=== PATIENT | female | born 1985 | race Caucasian/White ===

== ENCOUNTER 2019-10-27 18:14 | Emergency (ER) | payer SELFPAY ==
--- NOTE | 2019-10-27 19:10 | RAD REPORT ---
EXAM DESCRIPTION: Mally Single View10/27/2019 7:04 pm CLINICAL HISTORY: Chest pain COMPARISON: 2010 FINDINGS: The lungs appear clear of acute infiltrate. The heart is normal size IMPRESSION: No acute abnormalities displayed
--- NOTE | 2019-10-27 19:16 | RAD REPORT ---
EXAM DESCRIPTION: US - Abdomen Exam Limited - 10/27/2019 7:06 pm CLINICAL HISTORY: Abdominal pain. COMPARISON: 2007 FINDINGS: The gallbladder wall is not thickened. A gallstone is not seen. The biliary tree is normal caliber. IMPRESSION: Unremarkable gallbladder ultrasound.
[2019-10-27 19:56] LABS: Urine Blood NEGATIVE (NEG); Urine Glucose NEGATIVE (NEG); Urine Protein NEGATIVE (NEG)
[2019-10-27 20:05] LABS: Absolute Lymphocytes (CBC) 3.1 K/uL (0.7-4.9); Basophils % 0.5 % (0-1.3); Hematocrit 38.8 % (36.0-45.0); Lymphocytes % 45.4 % (15.3-44.8); MPV 8.8 fL (7.6-11.3); RBC Red Blood Cell Count 4.07 M/uL (3.86-4.86)
[2019-10-27 20:11] LABS: Protime INR 0.94
[2019-10-27] MEDS ORDERED: NA CHLORIDE 0.9% 1,000 ML ONE (20:12)
[2019-10-27] MEDS ORDERED: ACETAMINOPHEN 500 MG TAB ONE (20:13)
[2019-10-27 20:27] LABS: ALT/SGPT 31 U/L (12-78); AST/SGOT 21 U/L (15-37); Albumin 3.5 g/dL (3.4-5.0); Alkaline Phosphatase 82 U/L (45-117); BUN Blood Urea Nitrogen 13 mg/dL (7-18); Bicarbonate 30 mmol/L (21-32); Bilirubin Direct 0.1 mg/dL (0-0.2); Bilirubin Total 0.2 mg/dL (0.2-1.0); Glucose Level 94 mg/dL (74-106); Magnesium 2.2 mg/dL (1.8-2.4); NT PRO-BNP 19 pg/mL (<125); Potassium 3.7 mmol/L (3.5-5.1); Protein, Total 7.2 g/dL (6.4-8.2); Sodium Level 140 mmol/L (136-145); Troponin (Emerg Dept Use Only) < 0.02 ng/mL (0.0-0.045)
[2019-10-27] MEDS ORDERED: KETOROLAC 30 MG/ML INJ ONE (21:05)
[2019-10-27] MEDS ORDERED: METHYLPREDNISOLONE 125 MG INJ ONE (21:38)
[2019-10-27] MEDS ORDERED: DIPHENHYDRAMINE 50 MG/ML VIAL ONE (21:38)
[2019-10-27] MEDS ORDERED: FAMOTIDINE 20 MG/2 ML VIAL IV ONE (21:39)
--- NOTE | 2019-10-27 23:42 | EDPHYS ---
Physician Documentation [facility] Name: Nora Dsouza Age: 34 yrs Sex: Female : 1985 Arrival Date: 10/27/2019 Time: 18:21 Bed 5 Private MD: ED Physician Malcolm Moore HPI: 10/27 18:45 This 34 yrs old Female presents to ER via Ambulatory with complaints of Chest cp Pain. 18:45 The patient or guardian reports chest pain that is located primarily in the left lower cp chest below breast. The pain radiates to the left arm, the left shoulder, left back. Associated signs and symptoms: Pertinent positives: lower extremity pain, shortness of breath, Pertinent negatives: abdominal pain, diaphoresis, lower extremity swelling, palpitations, recent travel, syncope. The chest pain is described as sharp. Duration: The patient or guardian reports a single episode, that is still ongoing. Modifying factors: the symptoms are aggravated by activity, deep breath. Severity of pain: in the emergency department the pain is unchanged despite home interventions. 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 - Coronavirus screen:: The patient has NOT traveled to [place] in the past 14 days. - Social history:: Smoking status: Patient/guardian denies using tobacco. - Ebola Screening: : Patient denies travel to an Ebola-affected area in the 21 days before illness onset. ROS: 18:50 Constitutional: Negative for body aches, chills, fever, poor PO intake. cp 18:50 Eyes: Negative for injury, pain, redness, and discharge. cp 18:50 ENT: Negative for drainage from ear(s), ear pain, sore throat, difficulty swallowing, difficulty handling secretions. 18:50 Neck: Negative for pain with movement, pain at rest, stiffness. 18:50 Cardiovascular: Positive for chest pain, Negative for edema, palpitations. 18:50 Respiratory: Negative for cough, shortness of breath, wheezing. 18:50 Abdomen/GI: Negative for abdominal pain, vomiting, diarrhea, constipation. 18:50 Back: Positive for radiated pain. 18:50 : Negative for urinary symptoms. 18:50 Skin: Negative for rash. 18:50 Neuro: Negative for altered mental status, headache, syncope, weakness. 18:50 All other systems are negative. Exam: 18:55 Constitutional: The patient appears in no acute distress, alert, awake, cp non-diaphoretic, non-toxic, well developed, well nourished. 18:55 Head/Face: Normocephalic, atraumatic. cp 18:55 Eyes: Periorbital structures: appear normal, Conjunctiva: normal, no exudate, no injection, Sclera: no appreciated abnormality, Lids and lashes: appear normal, bilaterally. 18:55 ENT: External ear(s): are unremarkable, Nose: is normal, Mouth: Lips: moist, Oral mucosa: pink and intact, moist, Posterior pharynx: is normal, airway is patent, no erythema, no exudate. 18:55 Neck: ROM/movement: is normal, is supple, without pain, no range of motions limitations, no nuchal rigidity. 18:55 Chest/axilla: Inspection: normal, Palpation: crepitus, is not appreciated. 18:55 Cardiovascular: Rate: normal, Rhythm: regular, Heart sounds: murmur, not appreciated, rub, not appreciated, gallop, not appreciated, Edema: is not appreciated. 18:55 Respiratory: the patient does not display signs of respiratory distress, Respirations: normal, no use of accessory muscles, no retractions, labored breathing, is not present, Breath sounds: are clear throughout, no decreased breath sounds, no stridor, no wheezing. 18:55 Abdomen/GI: Inspection: abdomen appears normal, Bowel sounds: active, all quadrants, Palpation: abdomen is soft and non-tender, in all quadrants, voluntary guarding, is not appreciated, involuntary guarding, is not appreciated. 18:55 Back: pain, that is mild, ROM is normal. 18:55 Skin: no rash present. 18:55 Neuro: Orientation: to person, place \T\ time. Mentation: is normal, Cerebellar function: is grossly normal, Motor: moves all fours, strength is normal, Sensation: is normal. 19:45 ECG was reviewed by the Attending Physician. cp 23:35 ECG was reviewed by the Attending Physician. cp Vital Signs: 18:24 BP 115 / 84; Pulse 73; Resp 18; Temp 97.1; Pulse Ox 100% on R/A; Weight 84.82 kg (R); aj1 Height 5 ft. 2 in. (157.48 cm) (R); Pain 3/10; 20:15 BP 107 / 73 LA; Pulse 73; lp1 20:15 BP 110 / 82 RA; Pulse 71; lp1 21:15 BP 115 / 81; Pulse 72; Resp 16; Pulse Ox 98% on R/A; lp1 22:05 BP 113 / 80; Pulse 71; Resp 18; Pulse Ox 99% on R/A; lp1 23:08 BP 115 / 77; Pulse 70; Resp 17; Temp 97.5(O); Pulse Ox 100% ; rv 18:24 Body Mass Index 34.20 (84.82 kg, 157.48 cm) aj1 MDM: 18:36 Patient medically screened. cp 19:00 Differential diagnosis: abnormal EKG, acute myocardial infarction, acute pericarditis, cp chest wall pain, cholecystitis, Cholelithiasis pericarditis, pleurisy, pneumonia, pneumothorax, pulmonary embolus, thoracic aortic disection. 22:29 ED course: verbal report from [employer] tech that DVT studies negative. cp 23:40 Data reviewed: vital signs, nurses notes, lab test result(s), EKG, radiologic studies, cp CT scan, plain films, ultrasound, I have discussed the patient's presentation/case with the attending Emergency Department Physician; and as a result, I will discharge patient. 23:40 Test interpretation: by ED physician or midlevel provider: ECG, plain radiologic cp studies, chest xray negative for infiltrates. Counseling: I had a detailed discussion with the patient and/or guardian regarding: the historical points, exam findings, and any diagnostic results supporting the discharge/admit diagnosis, lab results, radiology results, the need for outpatient follow up, a screw remover, to return to the emergency department if symptoms worsen or persist or if there are any questions or concerns that arise at home. Response to treatment: the patient's symptoms have markedly improved after treatment, and as a result, I will discharge patient. Special discussion: Based on the patient's history, exam, and Dx evaluation, there is no indication for emergent intervention or inpatient Tx. It is understood by the patient/guardian that if the Sx's persist or worsen they need to return immediately for re-evaluation. 10/27 18:39 Order name: Basic Metabolic Panel 10/27 18:39 Order name: CBC with Diff 10/27 18:39 Order name: LFT's cp 10/27 18:39 Order name: Magnesium cp 10/27 18:39 Order name: NT PRO-BNP cp 10/27 18:39 Order name: PT-INR cp 10/27 18:39 Order name: Troponin (emerg Dept Use Only) cp 10/27 18:39 Order name: D-Dimer 10/27 19:49 Order name: Urine Dipstick--Ancillary (enter results) 2 10/27 19:49 Order name: Urine --Ancillary (enter results) [facility] 10/27 19:57 Order name: Urine --Ancillary; Complete Time: 20:17 EDMS 10/27 19:57 Order name: Urine Dipstick-Ancillary; Complete Time: 20:17 EDMS 10/27 20:07 Order name: CBC with Automated Diff; Complete Time: 20:17 EDMS 10/27 20:37 Interpretation: Normal except: LYM% 45.4. 10/27 20:17 Order name: Protime (+INR); Complete Time: 20:37 EDMS 10/27 18:39 Order name: XRAY Chest (1 view) 10/27 18:40 Order name: US Abdomen Limited: RUQ 10/27 19:38 Order name: RAD; Complete Time: 20:17 EDMS 10/27 19:38 Order name: US; Complete Time: 20:17 EDMS 10/27 20:17 Order name: D-Dimer; Complete Time: 20:37 EDMS 10/27 20:37 Interpretation: Abnormal: D-DIMER 529. cp 10/27 20:28 Order name: Basic Metabolic Panel; Complete Time: 20:37 EDMS 10/27 20:28 Order name: Liver (Hepatic) Function; Complete Time: 20:37 EDMS 10/27 20:37 Interpretation: Normal except: GLOB 3.7; A/G 0.9. cp 10/27 20:28 Order name: Troponin (Emerg Dept Use Only); Complete Time: 20:37 EDMS 10/27 20:28 Order name: NT PRO-BNP; Complete Time: 20:37 EDMS 10/27 20:28 Order name: Magnesium; Complete Time: 20:37 EDMS 10/27 20:39 Order name: US Extremity Venous W Compression Anmol cp 10/27 21:27 Order name: CT Chest For PE Angio cp 10/27 23:24 Order name: Troponin I cp 10/27 18:25 Order name: EKG - Nurse/Tech; Complete Time: 19:44 aj1 10/27 18:39 Order name: EKG; Complete Time: 18:41 cp 10/27 18:39 Order name: Cardiac monitoring; Complete Time: 20:01 cp 10/27 18:39 Order name: IV Saline Lock; Complete Time: 20:01 cp 10/27 18:39 Order name: Labs collected and sent; Complete Time: 20:01 cp 10/27 18:39 Order name: O2 Per Protocol; Complete Time: 20:01 cp 10/27 18:39 Order name: O2 Sat Monitoring; Complete Time: 20:01 cp 10/27 18:39 Order name: Blood Pressure Recheck: bilateral upper extremity; Complete Time: 20:15 cp 10/27 18:39 Order name: Urine Dipstick-Ancillary (obtain specimen); Complete Time: 19:44 cp 10/27 18:39 Order name: Urine Test (obtain specimen); Complete Time: 19:44 cp 10/27 23:24 Order name: EKG; Complete Time: 23:24 cp 10/27 23:24 Order name: EKG - Nurse/Tech; Complete Time: 23:31 cp EC:45 Rate is 67 beats/min. Rhythm is regular. NM interval is prolonged at 204 msec. QRS cp interval is normal. QT interval is normal. Interpreted by me. Reviewed by me. 23:35 Rate is 76 beats/min. Rhythm is regular. NM interval is prolonged at 202 msec. QRS cp interval is normal. QT interval is normal. Interpreted by me. Reviewed by me. Administered Medications: 20:13 Drug: NS 0.9% 1000 ml Route: IV; Rate: 1000 ml/hr; Site: right antecubital; lp1 21:41 Follow up: IV Status: Completed infusion; IV Intake: 1000ml rv 20:13 Drug: Tylenol 1000 mg Route: PO; lp1 21:42 Follow up: Response: No adverse reaction rv 21:04 Not Given (Patient Refused): TORadol - Ketorolac 15 mg IVP once rv 21:41 Drug: Benadryl 50 mg Route: IVP; Site: right antecubital; rv 23:00 Follow up: Response: No adverse reaction lp1 21:41 Drug: SOLU-Medrol 125 mg Route: IVP; Site: right antecubital; rv 23:00 Follow up: Response: No adverse reaction lp1 21:41 Drug: Pepcid 20 mg Route: IVP; Site: right antecubital; rv 23:00 Follow up: Response: No adverse reaction lp1 Disposition: 10/27/19 23:41 Discharged to Home. Impression: Chest pain, unspecified. - Condition is Stable. - Discharge Instructions: Nonspecific Chest Pain, Aspirin and Your Heart. - Medication Reconciliation Form, Thank You Letter, Antibiotic Education, Prescription Opioid Use form. - Follow up: [place] MD; When: 2 - 3 days; Reason: Recheck today's complaints. - Problem is new. - Symptoms have improved. Addendum: 10/30/2019 07:16 Co-signature as Attending Physician, Malcolm Moore MD I agree with the assessment and k dr plan of care. Signatures: Dispatcher [employer] EDMS Nicki Talavera RN RN aj1 Malcolm Moore MD MD kdr Yamilet Samano RN RN lp1 Shay Hahn PA PA cp Mike Davis, RN RN rv Corrections: (The following items were deleted from the chart) 10/27 23:47 23:41 10/27/2019 23:41 Discharged to Home. Impression: Chest pain, unspecified. lp1 Condition is Stable. Forms are Medication Reconciliation Form, Thank You Letter, Antibiotic Education, Prescription Opioid Use. Follow up: [place]; When: 2 - 3 days; Reason: Recheck today's complaints. Problem is new. Symptoms have improved. cp
--- NOTE | 2019-10-27 23:42 | ER ---
Nurse's Notes [facility] Name: Nora Dsouza Age: 34 yrs Sex: Female : 1985 Arrival Date: 10/27/2019 Time: 18:21 Bed 5 Private MD: Diagnosis: Chest pain, unspecified Presentation: 10/27 18:21 Presenting complaint: Patient states: "My chest is hurting me and its going to the aj1 crease of my elbow and my big toe, it feels like someone is stabbing my big toe and my elbow with a bunch of pins. It'll come and go, and right now my chest feels like a rubber band, right underneath my bra.". Transition of care: patient was not received from another setting of care. Onset of symptoms was 2019. Risk Assessment: Do you want to hurt yourself or someone else? Patient reports no desire to harm self or others. Initial Sepsis Screen: Does the patient meet any 2 criteria? No. Patient's initial sepsis screen is negative. Does the patient have a suspected source of infection? No. Patient's initial sepsis screen is negative. Care prior to arrival: None. 18:21 Method Of Arrival: Ambulatory aj1 18:21 Acuity: EDMUND 3 aj1 Triage Assessment: 18:24 General: Appears in no apparent distress. comfortable, Behavior is calm, cooperative, aj1 appropriate for age. Pain: Complains of pain in chest Pain currently is 3 out of 10 on a pain scale. Neuro: Level of Consciousness is awake, alert, obeys commands, Oriented to person, place, time, situation. Cardiovascular: Patient's skin is warm and dry. Cardiovascular: Reports chest pain. Respiratory: Airway is patent Respiratory effort is even, unlabored, Respiratory pattern is regular, symmetrical. 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 - Coronavirus screen:: The patient has NOT traveled to [place] in the past 14 days. - Social history:: Smoking status: Patient/guardian denies using tobacco. - Ebola Screening: : Patient denies travel to an Ebola-affected area in the 21 days before illness onset. Screenin:03 Abuse screen: Denies threats or abuse. Denies injuries from another. Nutritional lp1 screening: No deficits noted. Tuberculosis screening: No symptoms or risk factors identified. Fall Risk None identified. Assessment: 19:45 General: Appears in no apparent distress. Behavior is calm, cooperative, appropriate lp1 for age. Pain: Complains of pain in chest Pain does not radiate. Pain currently is 6 out of 10 on a pain scale. Pain began 2-3 days ago. Is intermittent. Neuro: Level of Consciousness is awake, alert, obeys commands, Oriented to person, place, time, situation. Cardiovascular: Patient's skin is warm and dry. Respiratory: Respiratory effort is even, unlabored, Breath sounds are clear bilaterally. Denies shortness of breath. GI: No signs and/or symptoms were reported involving the gastrointestinal system. : No signs and/or symptoms were reported regarding the genitourinary system. EENT: No signs and/or symptoms were reported regarding the EENT system. Derm: Skin is pink, warm \\T\\ dry. Musculoskeletal: No deficits noted. 20:13 Reassessment: Provider notified of patient complaint of headache, verbal order for lp1 Tylenol 1000mg PO now. 22:04 Reassessment: US at bedside. lp1 23:37 Reassessment: Patient is alert, oriented x 3, equal unlabored respirations, skin lp1 warm/dry/pink. Patient informed of repeat troponin, appears agitated, states readiness to go home, "As long as the CT is is fine, I just want to go home"; Provider notified. 23:45 Reassessment: LEXY Ramírez at bedside to discuss discharge instructions and follow up lp1 with bullet slugs inspector; Patient demonstrates understanding. Vital Signs: 18:24 BP 115 / 84; Pulse 73; Resp 18; Temp 97.1; Pulse Ox 100% on R/A; Weight 84.82 kg (R); aj1 Height 5 ft. 2 in. (157.48 cm) (R); Pain 3/10; 20:15 BP 107 / 73 LA; Pulse 73; lp1 20:15 BP 110 / 82 RA; Pulse 71; lp1 21:15 BP 115 / 81; Pulse 72; Resp 16; Pulse Ox 98% on R/A; lp1 22:05 BP 113 / 80; Pulse 71; Resp 18; Pulse Ox 99% on R/A; lp1 23:08 BP 115 / 77; Pulse 70; Resp 17; Temp 97.5(O); Pulse Ox 100% ; rv 18:24 Body Mass Index 34.20 (84.82 kg, 157.48 cm) aj1 ED Course: 18:21 Patient arrived in ED. aj1 18:23 Triage completed. aj1 18:25 Arm band placed on. aj1 18:31 Shay Hahn PA is PHCP. cp 18:31 Malcolm Moore MD is Attending Physician. cp 19:31 Yamilet Samano, ESTELLE is Primary Nurse. lp1 19:45 Patient has correct armband on for positive identification. Placed in gown. Cardiac lp1 monitor on. Pulse ox on. NIBP on. 20:00 Inserted saline lock: 20 gauge in right antecubital area, using aseptic technique. By lp1 BC EMT student, assisted by nurse. 20:16 Notified Nurse Practitioner and/or Physician Page Makeup System Operator of a critical lab result(s), lp1 D-dimer 529. 21:04 Patient maintains SpO2 saturation greater than 95% on room air. lp1 23:38 No provider procedures requiring assistance completed. IV discontinued, No lp1 redness/swelling at site. Pressure dressing applied. 23:40 [place] MD is Referral Physician. cp 10/28 22:17 US Extremity Venous W Compression Anmol In Process Unspecified. EDMS Administered Medications: 10/27 20:13 Drug: NS 0.9% 1000 ml Route: IV; Rate: 1000 ml/hr; Site: right antecubital; lp1 21:41 Follow up: IV Status: Completed infusion; IV Intake: 1000ml rv 20:13 Drug: Tylenol 1000 mg Route: PO; lp1 21:42 Follow up: Response: No adverse reaction rv 21:04 Not Given (Patient Refused): TORadol - Ketorolac 15 mg IVP once rv 21:41 Drug: Benadryl 50 mg Route: IVP; Site: right antecubital; rv 23:00 Follow up: Response: No adverse reaction lp1 21:41 Drug: SOLU-Medrol 125 mg Route: IVP; Site: right antecubital; rv 23:00 Follow up: Response: No adverse reaction lp1 21:41 Drug: Pepcid 20 mg Route: IVP; Site: right antecubital; rv 23:00 Follow up: Response: No adverse reaction lp1 Intake: 21:41 IV: 1000ml; Total: 1000ml. rv Outcome: 23:41 Discharge ordered by . cp 23:46 Discharged to home ambulatory, with family. lp1 23:46 Condition: good 23:46 Discharge instructions given to patient, Instructed on discharge instructions, follow up and referral plans. Demonstrated understanding of instructions, follow-up care. 23:47 Patient left the ED. lp1 Signatures: Dispatcher [employer] EDNicki Snowden RN RN aj1 Yamilet Samano RN RN lp1 hSay Hahn PA PA cp Mike Davis, RN RN rv
[2019-10-28 02:29] VITALS: BP 115/77; TEMP 97.5; O2SAT 100
--- NOTE | 2019-10-28 10:56 | RAD REPORT ---
EXAM DESCRIPTION: CT - Chest For Pe Angio - 10/27/2019 11:51 pm CLINICAL HISTORY: The patient is 34 years old and is Female; CHEST PAIN TECHNIQUE: Axial computed tomographic angiography images of the chest with intravenous contrast. T his CT exam was performed using one or more of the following dose reduction techniques: automated e xposure control, adjustment of the mA and/or kV according to patient size, and/or use of iterative re construction technique. MIP reconstructed images were created and reviewed. Oblique reformatted images were created and reviewed. DLP: 400 mGy*cm COMPARISON: Chest radiograph of the same day. FINDINGS: PULMONARY ARTERIES: Unremarkable. No pulmonary embolism. AORTA: No acute findings. No thoracic aortic aneurysm. LUNGS: Interlobular septal thickening. No focal consolidation PLEURAL SPACE: Unremarkable. No significant effusion. No pneumothorax. HEART: Mild cardiomegaly. No significant pericardial effusion. No evidence of RV dysfunction. THYROID: Visualized thyroid is normal. BONES/JOINTS: No acute fracture. No dislocation. SOFT TISSUES: Unremarkable. LYMPH NODES: Unremarkable. No enlarged lymph nodes. IMPRESSION: 1. No pulmonary embolism. 2. Cardiomegaly and mild interstitial edema. Electronically signed by: Brennan Rios DO 10/27/2019 11:03 PM TRIGONOMETRY TUTOR Due to temporary technical issues with the PACS/Fluency reporting system, reports are being signed by the in house radiologist as a courtesy to ensure prompt reporting. The interpreting radiologist is f ully responsible for the content of the report.
--- NOTE | 2019-10-28 16:28 | EKG ---
Test Date: 2019-10-27 Test Time: 19:40:49 [address]: ANGELA MEASUREMENT RESULTS: Intervals: Rate: 67 WV: 204 QRSD: 72 QT: 368 QTc: 388 [place]: P: 35 WV: 204 QRS: 30 T: 43 INTERPRETIVE STATEMENTS: Normal sinus rhythm Anterior infarct, age undetermined Abnormal ECG Compared to ECG 06/04/2014 16:09:24 Myocardial infarct finding now present Sinus arrhythmia no longer present Electronically Signed On 10-28-19 16:27:22 FLARE STITCHER by Bird Terrazas
--- NOTE | 2019-10-29 07:47 | EKG ---
Test Date: 2019-10-27 Test Time: 23:29:17 Envelope Adjuster: ANGELA MEASUREMENT RESULTS: Intervals: Rate: 76 VA: 202 QRSD: 64 QT: 384 QTc: 432 [place]: P: 52 VA: 202 QRS: 47 T: 58 INTERPRETIVE STATEMENTS: Normal sinus rhythm Cannot rule out Anterior infarct, age undetermined Abnormal ECG Compared to ECG 10/27/2019 19:40:49 No significant changes Electronically Signed On 10-29-19 07:45:08 HEAVY EQUIPMENT RENTAL ASSOCIATE by Bird Terrazas
--- NOTE | 2019-10-30 10:48 | RAD REPORT ---
EXAM DESCRIPTION: US - Extrem Venous W Compress Anmol - 10/27/2019 10:15 pm CLINICAL HISTORY: Bilateral leg pain and swelling COMPARISON: None. TECHNIQUE: Real-time sonographic evaluation of the bilateral lower extremity common femoral, superfi cial femoral, popliteal and posterior tibial veins was performed. FINDINGS: Normal compressibility, flow augmentation, phasic flow and spontaneous flow are identified in the left and right lower extremity common femoral, superficial femoral, popliteal and posterior t ibial veins. No intraluminal filling defects seen. Final report was delayed due to technical issues. A preliminary report was provided at the time of e study. IMPRESSION: No DVT in either lower extremity.
== END 2019-10-27 23:47 | disposition home or self-care (01) ==
LOC: ER 18:14
DX: R07.9 Chest pain, unspecified (principal); M79.605 Pain in left leg; M79.604 Pain in right leg
CPT/HCPCS: 36415; 71045; 71275; 76705; 80048; 80076; 81003; 81025; 83735; 83880; 84484; 85025; 85379; 85610; 93005; 93970; 96361; 96374; 96375; 99285; J1200; J2930; J7030; Q9967

== ENCOUNTER 2020-10-23 15:02 | Emergency (ER) | payer OTHER, SELFPAY ==
[2020-10-23] MEDS ORDERED: NA CHLORIDE 0.9% 1,000 ML ONE ×2 (18:25→20:10)
[2020-10-23 18:33] LABS: Absolute Lymphocytes (CBC) 1.6 K/uL (0.7-4.9); Basophils % 0.7 % (0-1.3); Hematocrit 35.8 % (36.0-45.0); Lymphocytes % 13.7 % (15.3-44.8); MPV 8.6 fL (7.6-11.3); RBC Red Blood Cell Count 3.79 M/uL (3.86-4.86)
[2020-10-23 18:38] LABS: Protime INR 1.16
[2020-10-23 18:46] LABS: BUN Blood Urea Nitrogen 6 mg/dL (7-18); Bicarbonate 28 mmol/L (21-32); Glucose Level 108 mg/dL (74-106); Potassium 3.5 mmol/L (3.5-5.1); Sodium Level 139 mmol/L (136-145)
[2020-10-23 19:30] LABS: Urine Blood NEGATIVE (NEG); Urine Glucose NEGATIVE (NEG); Urine Protein NEGATIVE (NEG)
[2020-10-23 19:40] LABS: Urine Bacteria <20 /HPF (<20); Urine RBC NONE SEEN /HPF (NONE SEEN)
--- NOTE | 2020-10-23 19:48 | ER ---
Nurse's Notes [facility] Name: Nora Dsouza Age: 35 yrs Sex: Female : 1985 Arrival Date: 10/23/2020 Time: 15:07 Bed 2 Private MD: Diagnosis: Cellulitis of abdominal wall Presentation: 10/23 15:17 Chief complaint: Patient states: Fever, DENNY, sore throat for 3 days. Body aches, nausea ll1 started today. Abd wound from tummy tuck (3 weeks ago) is opening up slightly for the past 3 days, states it is starting to heal from inside out. Coronavirus screen: Client denies travel out of the [place] in the last 14 days. congestion, fatigue, fever, headache, muscle pain, nausea, shaking with chills, sore throat, Client presents with at least one sign or symptom that may indicate coronavirus-19. Standard/surgical mask placed on the client. Ebola Screen: Patient denies travel to an Ebola-affected area in the 21 days before illness onset. Initial Sepsis Screen: Does the patient meet any 2 criteria? HR > 90 bpm. No. Patient's initial sepsis screen is negative. Does the patient have a suspected source of infection? Yes: Other: sore throat, body aches, congestion. Risk Assessment: Do you want to hurt yourself or someone else? Patient reports no desire to harm self or others. Onset of symptoms was October 21, 2020. 15:17 Method Of Arrival: Wheelchair ll1 15:17 Acuity: EDMUND 3 ll1 Historical: - Allergies: 15:23 Iodine; ll1 - PMHx: 15:23 Migraines; ll1 - PSHx: 15:23 tummy tuck; ; finger sx; ll1 - Immunization history:: Flu vaccine is not up to date. - Social history:: Smoking status: Patient denies any tobacco usage or history of. Screenin:31 Abuse screen: Denies threats or abuse. Denies injuries from another. Nutritional hb screening: No deficits noted. Tuberculosis screening: No symptoms or risk factors identified. Fall Risk None identified. Assessment: 18:32 General: Appears in no apparent distress. Behavior is calm, cooperative. Pain: Pain hb currently is 6 out of 10 on a pain scale. Neuro: Level of Consciousness is awake, alert, obeys commands, Oriented to person, place, time, situation. Cardiovascular: Capillary refill < 3 seconds Patient's skin is warm and dry. Respiratory: Respiratory effort is even, unlabored, Respiratory pattern is regular, symmetrical. GI: Reports nausea, vomiting. : No signs and/or symptoms were reported regarding the genitourinary system. EENT: No signs and/or symptoms were reported regarding the EENT system. Derm: Skin is pink, warm \T\ dry. Musculoskeletal: No signs and/or symptoms reported regarding the musculoskeletal system. 18:33 Reassessment: Pt refused COVID swab, Dr. Merino notified at bedside. hb 19:15 General: Appears in no apparent distress. Behavior is calm, cooperative, appropriate wh for age. Neuro: Level of Consciousness is awake, alert, obeys commands, Oriented to person, place, time, situation, Appropriate for age. Cardiovascular: Capillary refill < 3 seconds Patient's skin is warm and dry. Respiratory: Airway is patent Respiratory effort is even, unlabored, Respiratory pattern is regular, symmetrical. GI: Reports lower abdominal pain, nausea. : No signs and/or symptoms were reported regarding the genitourinary system. EENT: No signs and/or symptoms were reported regarding the EENT system. Derm: Skin is intact, Skin is pink, warm \T\ dry. Wound noted suprapubic area Wound is surgical wound. Musculoskeletal: Circulation, motion, and sensation intact. Vital Signs: 15:17 BP 106 / 73; Pulse 110; Resp 18; Temp 99.3; Pulse Ox 96% on R/A; Weight 72.57 kg; ll1 Height 5 ft. 2 in. (157.48 cm); Pain 7/10; 18:00 BP 112 / 70; Pulse 106; Resp 15; Pulse Ox 99% on R/A; hb 19:30 BP 102 / 72; Pulse 98; Resp 18; Pulse Ox 100% ; wh 21:11 BP 106 / 76; Pulse 89; Resp 18; Temp 98.7; Pulse Ox 100% on R/A; rv 15:17 Body Mass Index 29.26 (72.57 kg, 157.48 cm) ll1 ED Course: 15:07 Patient arrived in ED. mr 15:21 Triage completed. ll1 15:23 Arm band placed on. ll1 17:32 Shay Hahn PA is PHCP. cp 17:32 Danita Merino MD is Attending Physician. cp 18:07 Cayla Kaye RN is Primary Nurse. hb 18:20 Inserted saline lock: 20 gauge in right antecubital area, using aseptic technique. hb Blood collected. 18:32 Patient has correct armband on for positive identification. Bed in low position. Call hb light in reach. Side rails up X 1. 18:38 Ptt, Activated Sent. sv 18:38 PT-INR Sent. sv 18:38 BMP Sent. sv 18:38 CBC with Diff Sent. sv 19:26 Houston Mcdermott MD is Attending Physician. cp 19:44 Danita Merino MD is Attending Physician. cp 20:09 Primary Nurse role handed off by Cayla Kaye RN mw2 21:11 No provider procedures requiring assistance completed. IV discontinued, intact, rv bleeding controlled, No redness/swelling at site. Pressure dressing applied. Wound care: to post op located on abdomen was dressed with 4X4s, Patient tolerated well. Administered Medications: 18:21 Drug: NS 0.9% 1000 ml Route: IV; Rate: 1 bolus; Site: left antecubital; hb 19:52 Follow up: Response: No adverse reaction; IV Status: Completed infusion wh 20:01 Drug: NS 0.9% 1000 ml Route: IV; Rate: 1 bolus; Site: left antecubital; rv 21:10 Follow up: IV Status: Completed infusion; IV Intake: 1000ml rv 20:01 Drug: Bactrim (160 mg-800 mg (DS) 1 tablet Route: PO; rv 21:10 Follow up: Response: No adverse reaction rv 20:01 Drug: Doxycycline 100 mg Route: PO; rv 21:10 Follow up: Response: No adverse reaction rv Intake: 21:10 IV: 1000ml; Total: 1000ml. rv Outcome: 19:47 Discharge ordered by . cp 21:05 Patient left the ED. mw2 21:12 Discharged to home ambulatory. rv 21:12 Condition: good 21:12 Discharge instructions given to patient, Instructed on discharge instructions, follow up and referral plans. medication usage, wound care, Demonstrated understanding of instructions, follow-up care, medications, wound care, Prescriptions given X 4. Addendum: 10/27/2020 07:25 Addendum: Culture Results: Positive wound culture. No further action required. Bacteria e b sensitive to prescribed antibiotic. Signatures: Kyala Mario, RN RN Zonia Beckford [place], LEXY Day cp, Heather, RN ESTELLE Ayesha Ricks RN RN Rafal, Amarilys mw2 Haylie Collins Ronaldo RN RN Howard Cheatham RN RN ll1 Corrections: (The following items were deleted from the chart) 10/23 15:24 15:17 Chief complaint: Patient states: Fever, body aches, sore throat for 3 days. Body ll1 aches, nausea started today. Abd wound from tummy tuck is opening up slightly for the past 3 days, states it is starting to heal from inside out. [facility] 19:51 19:15 GI: Reports lower abdominal pain, upper abdominal pain, nausea, [facility] 19:59 19:15 : No signs and/or symptoms were reported regarding the genitourinary system. [facility] :59 19:15 Derm: Skin is intact, Skin is pink, warm \T\ dry. [facility]
--- NOTE | 2020-10-23 19:48 | EDPHYS ---
Physician Documentation [facility] Name: Nora Dsouza Age: 35 yrs Sex: Female : 1985 Arrival Date: 10/23/2020 Time: 15:07 Bed 2 Private MD: ED Physician Danita Merino HPI: 10/23 18:05 This 35 yrs old Female presents to ER via Wheelchair with complaints of Post cp Surgical Pain, Fever, Vomiting, Back Pain. 18:05 Patient reports having tummy tuck surgery by DR Child in [place], [place] 3 weeks cp ago. Sutures ruptured prematurely causing wound to open. Patient reports she has contacted his office and sent picture of surgical site and was told wound does not look infected. 18:05 Associated signs and symptoms: Pertinent positives: fever, sore throat, vomiting, body cp aches. Historical: - Allergies: 15:23 Iodine; ll1 - PMHx: 15:23 Migraines; ll1 - PSHx: 15:23 tummy tuck; ; finger sx; ll1 - Immunization history:: Flu vaccine is not up to date. - Social history:: Smoking status: Patient denies any tobacco usage or history of. ROS: 18:10 Constitutional: Positive for body aches, Negative for chills, fever, poor PO intake. cp 18:10 Eyes: Negative for injury, pain, redness, and discharge. cp 18:10 ENT: Positive for sore throat. 18:10 Cardiovascular: Negative for chest pain, palpitations. 18:10 Respiratory: Negative for cough, shortness of breath, wheezing. 18:10 Abdomen/GI: Positive for abdominal pain, nausea and vomiting, Negative for diarrhea, constipation. 18:10 Neuro: Negative for dizziness, headache, weakness. 18:10 All other systems are negative. Exam: 18:15 Constitutional: The patient appears in no acute distress, alert, awake, non-toxic, well cp developed, well nourished. 18:15 Head/Face: Normocephalic, atraumatic. cp 18:15 Eyes: Periorbital structures: appear normal, Conjunctiva: normal, no exudate, no injection, Sclera: no appreciated abnormality, Lids and lashes: appear normal, bilaterally. 18:15 ENT: External ear(s): are unremarkable, Ear canal(s): are normal, clear, TM's: dullness, bilaterally. 18:15 Neck: ROM/movement: is normal, is supple, without pain, no range of motions limitations, no meningismus. 18:15 Chest/axilla: Inspection: normal, Palpation: is normal, no crepitus, no tenderness. 18:15 Cardiovascular: Rate: tachycardic, Rhythm: regular. 18:15 Respiratory: the patient does not display signs of respiratory distress, Respirations: normal, no use of accessory muscles, no retractions, labored breathing, is not present, Breath sounds: are clear throughout, no decreased breath sounds, no stridor, no wheezing. 18:15 Abdomen/GI: Inspection: scar(s), are noted in the lower abdomen, Bowel sounds: active, all quadrants, Palpation: soft, in all quadrants, mild abdominal tenderness, in the right lower quadrant and left lower quadrant, rebound tenderness, is not appreciated, involuntary guarding, is not appreciated. 18:15 Skin: surgical scar of lower abdomen appears with mild erythema and swelling, small open wound with scant drainage, areas of skin necrosis noted. 18:15 Neuro: Orientation: to person, place \T\ time. Mentation: is normal, Cerebellar function: is grossly normal, Motor: moves all fours, strength is normal. Vital Signs: 15:17 BP 106 / 73; Pulse 110; Resp 18; Temp 99.3; Pulse Ox 96% on R/A; Weight 72.57 kg; ll1 Height 5 ft. 2 in. (157.48 cm); Pain 7/10; 18:00 BP 112 / 70; Pulse 106; Resp 15; Pulse Ox 99% on R/A; hb 19:30 BP 102 / 72; Pulse 98; Resp 18; Pulse Ox 100% ; wh 21:11 BP 106 / 76; Pulse 89; Resp 18; Temp 98.7; Pulse Ox 100% on R/A; rv 15:17 Body Mass Index 29.26 (72.57 kg, 157.48 cm) ll1 MDM: 17:34 Patient medically screened. cp 18:30 Differential diagnosis: URI, bronchitis, pneumonia UTI, gastroenteritis, meningitis. cp 19:45 Data reviewed: vital signs, nurses notes, lab test result(s). cp 19:45 Counseling: I had a detailed discussion with the patient and/or guardian regarding: the cp historical points, exam findings, and any diagnostic results supporting the discharge/admit diagnosis, lab results, the need for outpatient follow up, plastic surgeon, to return to the emergency department if symptoms worsen or persist or if there are any questions or concerns that arise at home. ED course: Patient refuses CT abdomen/pelvis to r/o abscess at this time. Will discharge with oral antibiotics with recommendation to f/u with surgeon. 10/23 18:01 Order name: CBC with Diff cp 10/23 18:01 Order name: BMP cp 10/23 18:01 Order name: Urine Dipstick-Ancillary (obtain specimen); Complete Time: 19:41 cp 10/23 18:01 Order name: Urine Microscopic Only cp 10/23 18:01 Order name: Urine Test (obtain specimen); Complete Time: 19:41 cp 10/23 18:01 Order name: PT-INR cp 10/23 18:01 Order name: Ptt, Activated cp 10/23 18:01 Order name: Influenza Screen (a \T\ B); Complete Time: 19:25 cp 10/23 18:01 Order name: Wound Culture cp 10/23 18:01 Order name: Strep; Complete Time: 19:25 cp 10/23 19:27 Interpretation: Reviewed. cp 10/23 18:01 Order name: IV; Complete Time: 18:31 cp 10/23 18:02 Order name: CBC with Automated Diff; Complete Time: 19:25 EDMS 10/23 19:27 Interpretation: Normal except: WBC 11.60; RBC 3.79; HCT 35.8; BROOK% 79.7; LYM% 13.7; cp NEUT A 9.2. 10/23 18:02 Order name: Basic Metabolic Panel; Complete Time: 19:25 EDMS 10/23 18:02 Order name: Urine Microscopic Only EDMS 10/23 18:02 Order name: Protime (+INR); Complete Time: 19:25 EDMS 10/23 18:02 Order name: PTT, Activated Partial Thromb; Complete Time: 19:25 EDMS 10/23 18:48 Order name: Throat Culture EDPA 10/23 19:24 Order name: Urine Dipstick--Ancillary (enter results); Complete Time: 19:37 rv 10/23 19:37 Interpretation: Reviewed. cp Administered Medications: 18:21 Drug: NS 0.9% 1000 ml Route: IV; Rate: 1 bolus; Site: left antecubital; hb 19:52 Follow up: Response: No adverse reaction; IV Status: Completed infusion wh 20:01 Drug: NS 0.9% 1000 ml Route: IV; Rate: 1 bolus; Site: left antecubital; rv 21:10 Follow up: IV Status: Completed infusion; IV Intake: 1000ml rv 20:01 Drug: Bactrim (160 mg-800 mg (DS) 1 tablet Route: PO; rv 21:10 Follow up: Response: No adverse reaction rv 20:01 Drug: Doxycycline 100 mg Route: PO; rv 21:10 Follow up: Response: No adverse reaction rv Disposition: 10/23/20 19:47 Discharged to Home. Impression: Cellulitis of abdominal wall. - Condition is Stable. - Discharge Instructions: Cellulitis, Adult. - Prescriptions for Doxycycline Hyclate 100 mg Oral Tablet - take 1 tablet by ORAL route every 12 hours; 20 tablet. Bactrim DS 800- 160 mg Oral Tablet - take 1 tablet by ORAL route every 12 hours for 10 days; 20 tablet. Diflucan 150 mg Oral Tablet - take 1 tablet by ORAL route one time for 2 days repeat 2-3 days later if symptoms continue; 2 tablet. Zofran 4 mg Oral Tablet - take 1 tablet by ORAL route every 12 hours As needed; 20 tablet. - Medication Reconciliation Form, Thank You Letter, Antibiotic Education, Prescription Opioid Use form. - Follow up: Private Physician; When: 2 - 3 days; Reason: Wound Recheck. - Problem is new. - Symptoms have improved. Addendum: 11/15/2020 02:10 Co-signature as Attending Physician, Danita Merino MD. m a2 Signatures: Dispatcher [employer] EDMS Shay Hahn PA PA cp Cayla Kaye, RN Danita Domínguez MD MD pa2 Amarilys Lyles 2 Mike Davis RN RN rv Howard Dai RN RN ll1 Ayesha Ricks RN Corrections: (The following items were deleted from the chart) 10/23 18:28 18:03 Abdomen Pelvis W Con+CT.RAD.BRZ ordered. EDMS EDMS 21:05 19:47 10/23/2020 19:47 Discharged to Home. Impression: Cellulitis of abdominal wall. mw2 Condition is Stable. Forms are Medication Reconciliation Form, Thank You Letter, Antibiotic Education, Prescription Opioid Use. Follow up: Private Physician; When: 2 - 3 days; Reason: Wound Recheck. Problem is new. Symptoms have improved. cp
[2020-10-23] MEDS ORDERED: DOXYCYCLINE 100 MG CAP PO ONE (20:10)
[2020-10-23] MEDS ORDERED: SMZ./TMP. 800/160 MG TABLET ONE (20:10)
[2020-10-23 21:29] VITALS: TEMP 99.3
[2020-10-23 21:31] VITALS: BP 102/72; O2SAT 100
== END 2020-10-23 21:05 | disposition home or self-care (01) ==
LOC: ER 15:02
DX: L03.311 Cellulitis of abdominal wall (principal); Z98.890 Other specified postprocedural states; Z91.09 Other allergy status, other than to drugs and biological substances
CPT/HCPCS: 96361; 87070 ×2; 85025; 80048; 36415; 87205; 85610; 87081; 85730; 87077; 87186; 87804 ×2; 96360; 99284; J7030 ×2; 81003; 81015

== ENCOUNTER 2020-11-07 10:38 | Emergency (ER) | payer OTHER ==
--- OUTSIDE RECORDS SUMMARY | 2020-11-07 10:41 | XMS REPORT | Continuity of Care Document ---
:1985 Author Organization [facility] t Address [address] [place] [address] [address]. Tracey[address] [place] [address] Care Team Providers Name Role Phone Lab, Fam Pob I Attending Clinician Unavailable Problems This patient has no known problems. Allergies, Adverse Reactions, Alerts This patient has no known allergies or adverse reactions. Medications This patient has no known medications. Procedures This patient has no known procedures. Encounters Start End Encounter Admission Attending Care Care Encounter Source Date/Time Date/Time Type Type Clinicians Facility Department ID 2020-09-30 2020-09-30 Laboratory Lab, [facility] [id number] 17:31:57 17:51:57 Only Fam Pob I [facility] [id number] [place] [id number] [place] [id number] nal [facility] Office [address] Results This patient has no known results.
--- NOTE | 2020-11-07 11:42 | ER ---
Nurse's Notes [facility] Name: Nora Dsouza Age: 35 yrs Sex: Female : 1985 Arrival Date: 11/07/2020 Time: 10:40 Bed 15 Private MD: Diagnosis: Abdominal Wound Dehiscence Presentation: 11/07 10:44 Chief complaint: Patient states: Dying her hair this morning, and she hair dye got into ll1 her abdominal wound. Has surgery scheduled tomorrow for debridement, she had a tummy tuck 2 weeks ago. States the right side of her wound is painful. No fever. Anxious about not being able to get surgery tomorrow. Coronavirus screen: Client denies travel out of the [place] in the last 14 days. At this time, the client does not indicate any symptoms associated with coronavirus-19. Ebola Screen: Patient denies travel to an Ebola-affected area in the 21 days before illness onset. Initial Sepsis Screen: Does the patient meet any 2 criteria? No. Patient's initial sepsis screen is negative. Does the patient have a suspected source of infection? Yes: Skin breakdown/wound. Risk Assessment: Do you want to hurt yourself or someone else? Patient reports no desire to harm self or others. Onset of symptoms was November 07, 2020. 10:44 Method Of Arrival: Ambulatory ll1 10:44 Acuity: EDMUND 4 ll1 Historical: - Allergies: 10:47 Iodine; ll1 - PMHx: 10:47 Migraines; ll1 - PSHx: 10:47 tummy tuck; ; finger sx; ll1 - Immunization history:: Flu vaccine is not up to date. - Social history:: Smoking status: Patient denies any tobacco usage or history of. Screenin:55 Abuse screen: Denies threats or abuse. Denies injuries from another. Nutritional jl7 screening: No deficits noted. Tuberculosis screening: No symptoms or risk factors identified. Fall Risk None identified. Assessment: 10:55 General: Appears in no apparent distress. uncomfortable, Behavior is cooperative, jl7 anxious. Pain: Complains of pain in abdomen Pain currently is 5 out of 10 on a pain scale. Neuro: Level of Consciousness is awake, alert, obeys commands, Oriented to person, place, time, situation. Cardiovascular: Patient's skin is warm and dry. Respiratory: Airway is patent Respiratory effort is even, unlabored, Respiratory pattern is regular, symmetrical. Derm: Skin is pink, warm \T\ dry. Musculoskeletal: lower abdominal surgical wound noted to be , pt concerned of hair dye getting inside the wound. 11:59 Reassessment: Wound packed with gauze and abdominal pad x 1 on top, foam tape to secure.jl7 Vital Signs: 10:44 BP 130 / 92; Pulse 87; Resp 17; Temp 98.2; Pulse Ox 100% ; Weight 72.57 kg; Height 5 ll1 ft. 2 in. (157.48 cm); Pain 5/10; 10:44 Body Mass Index 29.26 (72.57 kg, 157.48 cm) ll1 ED Course: 10:40 Patient arrived in ED. ds1 10:46 Triage completed. ll1 10:47 Arm band placed on Patient placed in an exam room, on a stretcher. ll1 10:48 Malcolm Moore MD is Attending Physician. kdr 10:55 Patient has correct armband on for positive identification. Placed in gown. Bed in low jl7 position. Call light in reach. Side rails up X 1. Pulse ox on. NIBP on. 10:59 Dave Miranda, RN is Primary Nurse. jl7 11:58 No provider procedures requiring assistance completed. Patient did not have IV access jl7 during this emergency room visit. Administered Medications: No medications were administered Outcome: 11:41 Discharge ordered by MD. kdr 12:00 Discharged to home ambulatory. jl7 12:00 Condition: stable 12:00 Discharge instructions given to patient, Instructed on discharge instructions, follow up and referral plans. Demonstrated understanding of instructions, follow-up care. 12:01 Patient left the ED. jl7 Signatures: Malcolm Moore MD MD [facility] Felicia Solis ds1 Dave Miranda, ESTELLE RN jl7 Howard Dai RN RN ll1 Corrections: (The following items were deleted from the chart) 10:50 10:44 Chief complaint: Patient states: Dying her hair this morning and she hair dye got ll1 into abdominal wound. Has surgery scheduled tomorrow for debridement. States the right side of her wound is painful. No fever. Anxious about not being able to get surgery tomorrow. ll1
--- NOTE | 2020-11-07 11:42 | EDPHYS ---
Physician Documentation [facility] Name: Nora Dsouza Age: 35 yrs Sex: Female : 1985 Arrival Date: 11/07/2020 Time: 10:40 Bed 15 Private MD: ED Physician Malcolm Moore HPI: 11/07 18:50 This 35 yrs old Female presents to ER via Ambulatory with complaints of Wound kdr Check, Dizziness. 18:50 The patient was dying her hair when she noted that she had gotten some of the solution kdr on her abdominal wound as is concerned that she now may have precipitated an infection and possible sepsis. This has her very worried. She has been so concerned that she feels panicked and feels like she is hyperventilating which is making her dizzy. Onset: The symptoms/episode began/occurred yesterday. Severity of symptoms: At their worst the symptoms were mild in the emergency department the symptoms are unchanged. The patient has not experienced similar symptoms in the past. The patient has experienced a previous episode, for wound care - has an appointment tomorrow. Historical: - Allergies: 10:47 Iodine; ll1 - PMHx: 10:47 Migraines; ll1 - PSHx: 10:47 tummy tuck; ; finger sx; ll1 - Immunization history:: Flu vaccine is not up to date. - Social history:: Smoking status: Patient denies any tobacco usage or history of. ROS: 18:50 Constitutional: Negative for fever, chills, and weight loss, Eyes: Negative for injury, kdr pain, redness, and discharge, ENT: Negative for injury, pain, and discharge, Neck: Negative for injury, pain, and swelling, Cardiovascular: Negative for chest pain, palpitations, and edema, Respiratory: Negative for shortness of breath, cough, wheezing, and pleuritic chest pain, Back: Negative for injury and pain, : Negative for injury, bleeding, discharge, and swelling, MS/Extremity: Negative for injury and deformity, Skin: Negative for injury, rash, and discoloration, Neuro: Negative for headache, weakness, numbness, tingling, and seizure activity. Psych: Negative for depression, anxiety, suicide ideation, homicidal ideation, and hallucinations, Allergy/Immunology: Negative for hives, rash, and allergies, Endocrine: Negative for neck swelling, polydipsia, polyuria, polyphagia, and marked weight changes, Hematologic/Lymphatic: Negative for swollen nodes, abnormal bleeding, and unusual bruising. 18:50 Abdomen/GI: Positive for There is a celine suprapubic dehisced wound with packing on her panus.. Exam: 18:50 Constitutional: This is a well developed, well nourished patient who is awake, alert, kdr and in no acute distress. Head/Face: Normocephalic, atraumatic. Neck: Trachea midline, no thyromegaly or masses palpated, and no cervical lymphadenopathy. Supple, full range of motion without nuchal rigidity, or vertebral point tenderness. No Meningismus. Chest/axilla: Normal chest wall appearance and motion. Nontender with no deformity. No lesions are appreciated. Back: No spinal tenderness. No costovertebral tenderness. Full range of motion. 18:50 Abdomen/GI: Inspection: Large approximately 3 cm x 15 cm wound on her panus which is healing well. There is no foul smell, the margins appear clean at the skin, there is no purulent drainage, Bowel sounds: normal, Palpation: soft, mild abdominal tenderness, around wound, rebound tenderness, is not appreciated. Vital Signs: 10:44 BP 130 / 92; Pulse 87; Resp 17; Temp 98.2; Pulse Ox 100% ; Weight 72.57 kg; Height 5 ll1 ft. 2 in. (157.48 cm); Pain 5/10; 10:44 Body Mass Index 29.26 (72.57 kg, 157.48 cm) ll1 MDM: 11:41 Patient medically screened. kdr 18:50 Data reviewed: vital signs, nurses notes. Counseling: I had a detailed discussion with kdr the patient and/or guardian regarding: the historical points, exam findings, and any diagnostic results supporting the discharge/admit diagnosis, the need for outpatient follow up. Administered Medications: No medications were administered Disposition: 11/07/20 11:41 Discharged to Home. Impression: Abdominal Wound Dehiscence. - Condition is Stable. - Discharge Instructions: Wound Dehiscence, [id number]. - Medication Reconciliation Form, Thank You Letter form. - Follow up: Private Physician; When: 24 Hours; Reason: If symptoms return, Further diagnostic work-up, Recheck today's complaints, Continuance of care, Re-evaluation by your physician. - Problem is an ongoing problem. - Symptoms are unchanged. - Notes: Keep your appointment tomorrow for wound check. Signatures: Malcolm Moore MD MD kdr Dave Miranda RN RN jl7 Howard Dai RN RN ll1 Corrections: (The following items were deleted from the chart) 12:01 11:41 11/07/2020 11:41 Discharged to Home. Impression: Abdominal Wound Dehiscence. jl7 Condition is Stable. Forms are Medication Reconciliation Form, Thank You Letter, Antibiotic Education, Prescription Opioid Use. Follow up: Private Physician; When: 24 Hours; Reason: If symptoms return, Further diagnostic work-up, Recheck today's complaints, Continuance of care, Re-evaluation by your physician. Problem is an ongoing problem. Symptoms are unchanged. kdr
[2020-11-08 18:36] VITALS: BP 130/92; TEMP 98.2; O2SAT 100
== END 2020-11-07 12:01 | disposition home or self-care (01) ==
LOC: ER 10:38
DX: T81.31XA Disruption of external operation (surgical) wound, not elsewhere classified, initial encounter (principal)
CPT/HCPCS: 99283

== ENCOUNTER 2021-07-17 13:35 | Emergency (ER) | payer OTHER ==
[2021-07-17 14:45] LABS: Urine Blood 3+ (Negative); Urine Glucose Negative (Negative); Urine Protein 2+ (Negative); Urine Specific Gravity 1.025 (1.005-1.030); Urine pH 5.5 (5.0-7.0)
[2021-07-17 14:47] LABS: Absolute Lymphocytes (CBC) 0.6 K/uL (0.7-4.9); Basophils % 0.3 % (0-1.3); Hematocrit 40.6 % (36.0-45.0); Lymphocytes % 5.5 % (15.3-44.8); MPV 8.4 fL (7.6-11.3); RBC Red Blood Cell Count 4.26 M/uL (3.86-4.86)
[2021-07-17] MEDS ORDERED: NA CHLORIDE 0.9% 1,000 ML ONE (15:04)
[2021-07-17] MEDS ORDERED: ONDANSETRON 4 MG/2 ML VIAL ONE (15:04)
[2021-07-17] MEDS ORDERED: KETOROLAC 30 MG/ML INJ ONE (15:04)
[2021-07-17] MEDS ORDERED: CEFTRIAXONE 1000 MG/VIAL ONE (15:34)
[2021-07-17 15:35] LABS: Urine RBC TNTC /HPF (NONE SEEN)
[2021-07-17 15:36] LABS: Urine Bacteria <20 /HPF (<20); Urine Mucus 1+ /HPF (NONE SEEN)
--- NOTE | 2021-07-17 15:50 | ER ---
Nurse's Notes [facility] Name: Nora Dsouza Age: 36 yrs Sex: Female : 1985 Arrival Date: 07/17/2021 Time: 13:37 Bed 7 Private MD: Dipak Joel B Diagnosis: Irregular menstruation, unspecified Presentation: 07/17 13:47 Chief complaint: Patient states: I had a tubal ligation in 2009. I haven't started my ld1 period in 4 months, Dr. Joel gave me a medication to start my period last week. I started bleeding on Wednesday, and the pain in my back is so severe. Coronavirus screen: At this time, the client does not indicate any symptoms associated with coronavirus-19. Ebola Screen: No symptoms or risks identified at this time. Initial Sepsis Screen: Does the patient meet any 2 criteria? No. Patient's initial sepsis screen is negative. Does the patient have a suspected source of infection? No. Patient's initial sepsis screen is negative. Risk Assessment: Do you want to hurt yourself or someone else? Patient reports no desire to harm self or others. Onset of symptoms was July 17, 2021. 13:47 Method Of Arrival: Ambulatory ld1 13:47 Acuity: EDMUND 3 ld1 Triage Assessment: 13:51 General: Appears in no apparent distress. uncomfortable, Behavior is calm, cooperative, ld1 appropriate for age. Pain: Complains of pain in left low back and right low back Pain radiates to thoracic area Pain currently is 10 out of 10 on a pain scale. Quality of pain is described as pressure, stabbing, Pain began 2-3 days ago. Is continuous. Neuro: Level of Consciousness is awake, alert, obeys commands, Oriented to person, place, time, situation, Appropriate for age. Cardiovascular: Capillary refill < 3 seconds Patient's skin is warm and dry. Respiratory: Airway is patent Respiratory effort is even, unlabored, Respiratory pattern is regular, symmetrical. GI: Abdomen is round non-distended. : Reports vaginal bleeding that is with clots, heavy flow. Derm: No signs and/or symptoms reported regarding the dermatologic system. Musculoskeletal: Reports pain in back. 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 - Social history:: Smoking status: Patient denies any tobacco usage or history of. Patient/guardian denies using alcohol. Screenin:11 Abuse screen: Denies threats or abuse. Denies injuries from another. Nutritional jl7 screening: No deficits noted. Tuberculosis screening: No symptoms or risk factors identified. Fall Risk IV access (20 points). Total Nance Fall Scale indicates No Risk (0-24 pts). Assessment: 14:30 General: Appears in no apparent distress. uncomfortable, Behavior is calm, cooperative, jl7 appropriate for age. Pain: Complains of pain in low back area Pain currently is 10 out of 10 on a pain scale. Neuro: Level of Consciousness is awake, alert, obeys commands, Oriented to person, place, time, situation. Cardiovascular: Patient's skin is warm and dry. Respiratory: Airway is patent Respiratory effort is even, unlabored, Respiratory pattern is symmetrical, agonal. GI: Reports lower abdominal pain. Derm: Skin is pink, warm \T\ dry. 15:30 Reassessment: Patient appears in no apparent distress at this time. Patient and/or jl7 family updated on plan of care and expected duration. Pain level reassessed. Patient is alert, oriented x 3, equal unlabored respirations, skin warm/dry/pink. Patient states symptoms have improved. 15:46 Reassessment: ERP at bedside discussing results and POC. jl7 Vital Signs: 13:47 BP 109 / 83; Pulse 104; Resp 18; Temp 97.6(TE); Pulse Ox 96% on R/A; Weight 74.84 kg; ld1 Height 5 ft. 1 in. (154.94 cm); Pain 10/10; 15:11 BP 105 / 79; Pulse 85; Resp 15; Pulse Ox 100% ; jl7 13:47 Body Mass Index 31.18 (74.84 kg, 154.94 cm) [facility] ED Course: 13:37 Patient arrived in ED. am2 13:41 Dipak Joel MD is Private Physician. am2 13:51 Triage completed. ld1 13:51 Arm band placed on left wrist. ld1 13:57 Valorie Thomason FNP-C is [facility]. kb 13:57 Danita Merino MD is Attending Physician. kb 14:35 Initial lab(s) drawn, by ak, sent to lab. Urine collected: clean catch specimen, blood kj1 tinged. Inserted saline lock: 20 gauge in right antecubital area, using aseptic technique. Blood collected. 14:59 Dave Miranda, ESTELLE is Primary Nurse. jl7 15:11 Patient has correct armband on for positive identification. Bed in low position. Call jl7 light in reach. Side rails up X 1. Pulse ox on. NIBP on. Warm blanket given. 16:03 No provider procedures requiring assistance completed. IV discontinued, intact, jl7 bleeding controlled, No redness/swelling at site. Pressure dressing applied. Administered Medications: 15:00 Drug: NS 0.9% 1000 ml Route: IV; Rate: 1000 ml; Site: right antecubital; jl7 15:55 Follow up: Response: No adverse reaction; IV Status: Completed infusion; IV Intake: jl7 1000ml 15:02 Drug: Zofran (Ondansetron) 4 mg Route: IVP; Site: right antecubital; jl7 15:30 Follow up: Response: No adverse reaction; Nausea is decreased jl7 15:05 Drug: Ketorolac 15 mg Route: IVP; Site: right antecubital; jl7 15:30 Follow up: Response: No adverse reaction; Pain is decreased jl7 15:55 Not Given (Physician Discretion): Rocephin (cefTRIAXone) 1 grams IV at calculated rate jl7 once; Given slow IV push per pharmacy instructions Intake: 15:55 IV: 1000ml; Total: 1000ml. jl7 Outcome: 15:49 Discharge ordered by . kb 16:03 Discharged to home ambulatory. jl7 16:03 Condition: stable 16:03 Discharge instructions given to patient, Instructed on discharge instructions, follow up and referral plans. medication usage, Demonstrated understanding of instructions, follow-up care, medications, Prescriptions given X 2. 16:03 Patient left the ED. jl7 Signatures: Valorie Thomason FNP-C FNP-CkDave Linn, RN RN jl7 Margaret Quesada am2 Kathy Thomason1 Venecia Avila, RN RN ld1
--- NOTE | 2021-07-17 15:50 | EDPHYS ---
Physician Documentation [facility] Name: Nora Dsouza Age: 36 yrs Sex: Female : 1985 Arrival Date: 07/17/2021 Time: 13:37 Bed 7 Private MD: Dipak Joel B ED Physician Danita Merino HPI: 07/17 15:52 This 36 yrs old Female presents to ER via Ambulatory with complaints of kb Vaginal Bleeding, Nausea, Abdominal Pain. 15:52 The patient presents with vaginal bleeding that is. Onset: The symptoms/episode kb began/occurred 2 day(s) ago. Modifying factors: The symptoms are alleviated by nothing, the symptoms are aggravated by nothing. Associated signs and symptoms: Pertinent positives: cramping, vaginal bleeding. Severity of symptoms: At their worst the symptoms were moderate, in the emergency department the symptoms are unchanged. The patient has not experienced similar symptoms in the past. The patient has been recently seen by a physician:. Pt states she hadn't had a period in 4 months so she went to Dr Joel and was given progesterone. States she completed it on Wednesday and cycle started on Wednesday. STates Dr Joel told her it was going to be painful, but the pain is causing nausea and she has been unable to tolerate po intake. 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 - Social history:: Smoking status: Patient denies any tobacco usage or history of. Patient/guardian denies using alcohol. ROS: 15:54 Constitutional: Negative for fever, chills, and weight loss. kb 15:54 Back: Positive for pain at rest, of the low back area. 15:54 : Positive for pelvic pain, vaginal bleeding. 15:54 All other systems are negative. Exam: 15:54 Constitutional: This is a well developed, well nourished patient who is awake, alert, kb and in no acute distress. Head/Face: Normocephalic, atraumatic. ENT: Moist Mucous membranes Respiratory: Respirations even and unlabored. No increased work of breathing, no retractions or nasal flaring. Abdomen/GI: Soft, non-tender. No distention Skin: Warm, dry with normal turgor. Normal color. MS/ Extremity: Pulses equal, no cyanosis. Neurovascular intact. Full, normal range of motion. Neuro: Awake and alert, GCS 15, oriented to person, place, time, and situation. Moves all extremities. Normal gait. Psych: Awake, alert, with orientation to person, place and time. Behavior, mood, and affect are within normal limits. 15:54 Back: pain, that is mild, of the low back area. Vital Signs: 13:47 BP 109 / 83; Pulse 104; Resp 18; Temp 97.6(TE); Pulse Ox 96% on R/A; Weight 74.84 kg; ld1 Height 5 ft. 1 in. (154.94 cm); Pain 10/10; 15:11 BP 105 / 79; Pulse 85; Resp 15; Pulse Ox 100% ; jl7 13:47 Body Mass Index 31.18 (74.84 kg, 154.94 cm) ld1 MDM: 14:18 Patient medically screened. kb 15:53 Data reviewed: vital signs, nurses notes. Data interpreted: Pulse oximetry: on room air kb is 100 %. Interpretation: normal. Counseling: I had a detailed discussion with the patient and/or guardian regarding: the historical points, exam findings, and any diagnostic results supporting the discharge/admit diagnosis, lab results, the need for outpatient follow up, an OB/Gyne specialist, to return to the emergency department if symptoms worsen or persist or if there are any questions or concerns that arise at home. 07/17 14:24 Order name: CBC with Diff kb 07/17 14:24 Order name: Basic Metabolic Panel; Complete Time: 15:32 kb 07/17 14:44 Order name: Urine Dipstick-Ancillary EDMS 07/17 14:45 Order name: Urine Microscopic Only; Complete Time: 15:41 kj1 07/17 14:45 Order name: Urine Culture kj1 07/17 14:46 Order name: Urine --Ancillary (enter results) eb 07/17 14:00 Order name: Urine Dipstick-Ancillary (obtain specimen); Complete Time: 14:59 kb 07/17 14:00 Order name: Urine Test (obtain specimen); Complete Time: 14:59 kb 07/17 14:24 Order name: IV Start; Complete Time: 14:59 kb Administered Medications: 15:00 Drug: NS 0.9% 1000 ml Route: IV; Rate: 1000 ml; Site: right antecubital; jl7 15:55 Follow up: Response: No adverse reaction; IV Status: Completed infusion; IV Intake: jl7 1000ml 15:02 Drug: Zofran (Ondansetron) 4 mg Route: IVP; Site: right antecubital; jl7 15:30 Follow up: Response: No adverse reaction; Nausea is decreased jl7 15:05 Drug: Ketorolac 15 mg Route: IVP; Site: right antecubital; jl7 15:30 Follow up: Response: No adverse reaction; Pain is decreased jl7 15:55 Not Given (Physician Discretion): Rocephin (cefTRIAXone) 1 grams IV at calculated rate jl7 once; Given slow IV push per pharmacy instructions Disposition Summary: 07/17/21 15:49 Discharge Ordered Location: Home kb Condition: Stable kb Diagnosis - Irregular menstruation, unspecified kb Followup: kb - With: Emergency Department - When: As needed - Reason: Worsening of condition Followup: kb - With: Private Physician - When: 2 - 3 days - Reason: Recheck today's complaints, Continuance of care, Re-evaluation by your physician Discharge Instructions: - Discharge Summary Sheet kb - Menorrhagia, [id number] kb - Abnormal Uterine Bleeding, [id number] kb Forms: - Medication Reconciliation Form kb - Thank You Letter kb - Antibiotic Education kb - Prescription Opioid Use kb Prescriptions: - Zofran 4 mg Oral Tablet - take 1 tablet by ORAL route every 6 hours As needed; 20 tablet; Refills: 0, kb Product Selection Permitted - Diclofenac Sodium 75 mg Oral tablet,delayed release (DR/EC) - take 1 tablet by ORAL route 2 times per day As needed; 30 tablet; Refills: 0, kb Product Selection Permitted Addendum: 07/21/2021 06:41 Co-signature as Attending Physician, Danita slater a2 Signatures: Dispatcher [employer] Valorie Luther FNP-C FOREST TECHNOLOGY PROFESSOR-CkDave Linn RN RN jl7 Danita Merino MD MD ma2 Venecia Avila RN RN ld1
[2021-07-17 16:15] VITALS: TEMP 97.6
[2021-07-17 16:16] VITALS: BP 105/79; O2SAT 100
[2021-07-17 16:26] LABS: Urine Specific Gravity/Preg 1.025 (1.005-1.030)
[2021-07-17 17:10] LABS: Blood Morphology Comment NOT SEEN (NOT SEEN); Platelet Estimate ADEQ; White Blood Cell Scan OK (OK)
--- OUTSIDE RECORDS SUMMARY | 2021-07-19 21:34 | XMS REPORT | Continuity of Care Document ---
:1985 Author Organization [facility] t Address [address] [place] [address] Care Team Providers Name Role Phone Lab, Fam Pob I Attending Clinician Unavailable SOFIA Attending Clinician Unavailable Inga CURIEL Attending Clinician Unavailable Payers Payer Name Policy Type Policy Number Effective Date Expiration Date S ource [place] [place] [id number] 2020 00:00:00 Problems This patient has no known problems. Allergies, Adverse Reactions, Alerts Allergy Allergy Status Severity Reaction(s) Onset Inactive Treating Comm ents Source Name Type Date Date Clinician NO KNOWN Drug Active [facility] ALLERGIE Class [facility] Medications This patient has no known medications. Procedures This patient has no known procedures. Encounters Start End Encounter Admission Attending Care Care Encounter Source Date/Time Date/Time Type Type Clinicians Facility Department ID 2020-09-30 2020-09-30 Laboratory Lab, Adc [facility] [id number] 17:31:57 17:51:57 Only Fam Pob I [facility] [id number] [place] [id number] [place] [phone] [address]al [address] 2020-09-30 2020-09-30 Outpatient R [facility] [id number] Univers 17:40:00 17:40:00 [id number] [facility] 2020-09-30 2020-09-30 Outpatient R SOFIA [facility] [id number] [facility] 17:40:00 17:40:00 CALEB [facility]encia of [facility] 2020-09-13 2020-09-13 Outpatient R VEENA [facility] [id number] [facility] 13:15:00 13:15:00 LINDA [id number] slime o [facility] Results This patient has no known results.
== END 2021-07-17 16:03 | disposition home or self-care (01) ==
LOC: ER 13:35
DX: N92.6 Irregular menstruation, unspecified (principal); Z91.09 Other allergy status, other than to drugs and biological substances
CPT/HCPCS: 96361; 87088; 85025; 87086; 80048; 36415; 81025; 96375; 96374; 99284; J7030; J2405; 81003; 81015

== ENCOUNTER 2022-06-01 08:51 | Emergency (ER) | payer OTHER ==
--- OUTSIDE RECORDS SUMMARY | 2022-06-01 08:54 | XMS REPORT | Continuity of Care Document ---
:1985 Author Organization [facility] t Address [address] [place] [address] Care Team Providers Name Role Phone LINDA CURIEL Primary Care Physician Unavailable DESHAUN BAROBSA Attending Clinician Unavailable Lab, Adc Fam Pob I Attending Clinician Unavailable CALEB BLACK Attending Clinician Unavailable LINDA CURIEL Attending Clinician Unavailable Payers Payer Name Policy Type Policy Number Effective Date Expiration Date S ource [place] [id number] 2020 00:00:00 [facility] [id number] 2017 00:00:00 Problems This patient has no known problems. Allergies, Adverse Reactions, Alerts Allergy Allergy Status Severity Reaction(s) Onset Inactive Treating Comm ents Source Name Type Date Date Clinician NO KNOWN Drug Active [facility] ALLERGIE Class [facility] of [facility] Medications This patient has no known medications. Procedures This patient has no known procedures. Encounters Start End Encounter Admission Attending Care Care Encounter Source Date/Time Date/Time Type Type Clinicians Facility Department ID 2021-09-29 2021-09-29 Outpatient Lyle BARBOSA [facility] [id number] Univers 10:30:00 10:30:00 DESHAUN [id number] slime [place] [facility] 2021-09-29 2021-09-29 Outpatient Lyle BARBOSA [facility] [id number] Univers 10:30:00 10:30:00 DESHAUN palencia o [facility] 2020-09-30 2020-09-30 Laboratory Lab, [facility] [id number] 17:31:57 17:51:57 Only Fam Pob I Health [id number] [place] [id number] [facility] [phone] [address]al [address] 2020-09-30 2020-09-30 Outpatient R [facility] [id number] Univers 17:40:00 17:40:00 [id number] [facility] 2020-09-30 2020-09-30 Outpatient R SOFIA, [facility] [id number] Univers 17:40:00 17:40:00 CALEB [facility] 2020-09-13 2020-09-13 Outpatient R VEENA, [facility] [id number] Univers 13:15:00 13:15:00 LINDA [id number] [facility] Results This patient has no known results.
[2022-06-01] MEDS ORDERED: KETOROLAC 30 MG/ML INJ ONE (09:41)
[2022-06-01] MEDS ORDERED: ONDANSETRON 4 MG/2 ML VIAL ONE (09:41)
[2022-06-01 09:54] LABS: Urine Blood Negative (Negative); Urine Glucose Negative (Negative); Urine Protein Negative (Negative); Urine Specific Gravity <=1.005 (1.005-1.030); Urine pH 5.5 (5.0-7.0)
[2022-06-01 10:03] LABS: Absolute Lymphocytes (CBC) 2.2 K/uL (0.7-4.9); Hematocrit 39.8 % (36.0-45.0); Lymphocytes % 30.7 % (15.3-44.8); MCV 95.2 fL (80-100); MPV 8.7 fL (7.6-11.3); RBC Red Blood Cell Count 4.18 M/uL (3.86-4.86)
--- NOTE | 2022-06-01 10:13 | RAD REPORT ---
EXAM DESCRIPTION: Mally Single View06/01/2022 9:45 am CLINICAL HISTORY: Dizziness and lays COMPARISON: 2019 FINDINGS: The lungs appear clear of acute infiltrate. The heart is normal size IMPRESSION: No acute abnormalities displayed
[2022-06-01 10:15] LABS: ALT/SGPT 18 U/L (12-78); AST/SGOT 15 U/L (15-37); Albumin 3.5 g/dL (3.4-5.0); Alkaline Phosphatase 70 U/L (45-117); BUN Blood Urea Nitrogen 10 mg/dL (7-18); Bicarbonate 28 mmol/L (21-32); Bilirubin Direct 0.1 mg/dL (0-0.2); Bilirubin Total 0.3 mg/dL (0.2-1.0); Glomerular Filtration Rate 91 ml/min (=/>90); Glucose Level 107 mg/dL (74-106); Magnesium 2.1 mg/dL (1.8-2.4); Potassium 3.7 mmol/L (3.5-5.1); Protein, Total 7.2 g/dL (6.4-8.2); Sodium Level 138 mmol/L (136-145)
[2022-06-01 10:19] LABS: Troponin High Sensitivity < 3.0 pg/mL (<58.9)
[2022-06-01] MEDS ORDERED: MECLIZINE HCL 12.5 MG TAB ONE (11:25)
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
--- NOTE | 2022-06-01 11:55 | EDPHYS ---
Physician Documentation [facility] Name: Nora Dsouza Age: 37 yrs Sex: Female : 1985 Arrival Date: 06/01/2022 Time: 08:53 Bed 13 Private MD: ED Physician Timothy Alvarado HPI: 06/01 09:00 This 37 yrs old Female presents to ER via Ambulatory with complaints of Nausea, jh7 Dizziness, Fatigue, Headache. 09:00 The patient presents to the emergency department with nausea, that is mild. Onset: The jh7 symptoms/episode began/occurred 2 week(s) ago. Associated signs and symptoms: Pertinent positives: Headache, fatigue, dizziness, Pertinent negatives: abdominal pain, constipation, diarrhea, dysuria, fever. Patient reports nausea, dizziness, headache, and extreme fatigue for the past 2 weeks. Denies fever, cough, shortness of breath, chest pain, and congestion. History of migraines. States that she has not vomited in the past 5 days and has been able to tolerate p.o. fluids with no issues.. 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 - Social history:: Smoking status: Patient denies any tobacco usage or history of. ROS: 09:00 Eyes: Negative for injury, pain, redness, and discharge, ENT: Negative for injury, jh7 pain, and discharge, Neck: Negative for injury, pain, and swelling, Cardiovascular: Negative for chest pain, palpitations, and edema, Respiratory: Negative for shortness of breath, cough, wheezing, and pleuritic chest pain, Back: Negative for injury and pain, MS/Extremity: Negative for injury and deformity, Skin: Negative for injury, rash, and discoloration, Neuro: Negative for headache, weakness, numbness, tingling, and seizure. 09:00 Constitutional: Positive for fatigue, Negative for body aches, chills, fever, poor PO intake. 09:00 Abdomen/GI: 09:00 Neuro: Positive for dizziness, headache, Negative for altered mental status, loss of consciousness, numbness, speech changes, syncope, tingling. 09:00 All other systems are negative. Exam: 09:00 Constitutional: This is a well developed, well nourished patient who is awake, alert, jh7 and in no acute distress. Head/Face: Normocephalic, atraumatic. Eyes: Pupils equal round and reactive to light, extra-ocular motions intact. Lids and lashes normal. Conjunctiva and sclera are non-icteric and not injected. Cornea within normal limits. Periorbital areas with no swelling, redness, or edema. ENT: Nares patent. No nasal discharge, no septal abnormalities noted. Tympanic membranes are normal and external auditory canals are clear. Oropharynx with no redness, swelling, or masses, exudates, or evidence of obstruction, uvula midline. Mucous membranes moist. Neck: Trachea midline, no thyromegaly or masses palpated, and no cervical lymphadenopathy. Supple, full range of motion without nuchal rigidity, or vertebral point tenderness. No Meningismus. Cardiovascular: Regular rate and rhythm with a normal S1 and S2. No gallops, murmurs, or rubs. Normal PMI, no JVD. No pulse deficits. Respiratory: Lungs have equal breath sounds bilaterally, clear to auscultation and percussion. No rales, rhonchi or wheezes noted. No increased work of breathing, no retractions or nasal flaring. Abdomen/GI: Soft, non-tender, with normal bowel sounds. No distension or tympany. No guarding or rebound. No evidence of tenderness throughout. Back: No spinal tenderness. No costovertebral tenderness. Full range of motion. Skin: Warm, dry with normal turgor. Normal color with no rashes, no lesions, and no evidence of cellulitis. MS/ Extremity: Pulses equal, no cyanosis. Neurovascular intact. Full, normal range of motion. Neuro: Awake and alert, GCS 15, oriented to person, place, time, and situation. Cranial nerves II-XII grossly intact. Motor strength 5/5 in all extremities. Sensory grossly intact. Cerebellar exam normal. Normal gait. 11:50 ECG was reviewed by the Attending Physician. ms3 Vital Signs: 08:58 BP 118 / 82; Pulse 77; Resp 16; Temp 98.4; Pulse Ox 100% ; Weight 77.11 kg; Height 5 db ft. 3 in. (160.02 cm); 09:09 BP 107 / 76; Pulse 79; Resp 16; Pulse Ox 100% ; db 10:00 BP 119 / 75; Pulse 74; Resp 16; Pulse Ox 98% ; db 11:34 BP 103 / 74; Pulse 59; Resp 18; Pulse Ox 99% on R/A; ph 08:58 Body Mass Index 30.11 (77.11 kg, 160.02 cm) db [place] Coma Score: 09:09 Eye Response: spontaneous(4). Verbal Response: oriented(5). Motor Response: obeys db commands(6). Total: 15. MDM: 08:57 Patient medically screened. [facility] 11:55 Differential diagnosis: Acute migraine, viral infection, vertigo. Data reviewed: [facility] signs, nurses notes, lab test result(s). Data interpreted: Pulse oximetry: is 99 %. Interpretation: normal. Counseling: I had a detailed discussion with the patient and/or guardian regarding: the historical points, exam findings, and any diagnostic results supporting the discharge/admit diagnosis, to return to the emergency department if symptoms worsen or persist or if there are any questions or concerns that arise at home. Response to treatment: the patient's symptoms have resolved after treatment, Dizziness gone. ED course: Patient remained hemodynamically stable throughout her ER visit. All labs were reviewed with the patient. Patient significantly improved after meclizine administration. She stated "I feel better I would like to go home now".. 06/01 09:13 Order name: Basic Metabolic Panel; Complete Time: 10: [facility] 06/01 09:13 Order name: CBC with Diff; Complete Time: 10: [facility] 06/01 09:13 Order name: LFT's; Complete Time: 10: [facility] 06/01 09:13 Order name: Magnesium; Complete Time: 10: [facility] 06/01 09:13 Order name: Troponin HS; Complete Time: : [facility] 06/01 09:14 Order name: Urine Microscopic Only; Complete Time: : [facility] 06/01 09:13 Order name: XRAY Chest (1 view); Complete Time: 10: [facility] 06/01 09:13 Order name: EKG; Complete Time: 09:14 [facility] 06/01 09:13 Order name: Cardiac monitoring; Complete Time: 09:53 [facility] 06/01 09:54 Order name: Urine Dipstick-Ancillary; Complete Time: 10:32 EDMS 06/01 09:13 Order name: EKG - Nurse/Tech; Complete Time: 10:09 [facility] 06/01 09:13 Order name: IV Saline Lock; Complete Time: 09:52 [facility] 06/01 09:13 Order name: Labs collected and sent; Complete Time: 09:52 [facility] 06/01 09:13 Order name: O2 Per Protocol; Complete Time: 09:53 [facility] 06/01 09:13 Order name: O2 Sat Monitoring; Complete Time: 09:53 [facility] 06/01 09:14 Order name: Urine Dipstick-Ancillary (obtain specimen); Complete Time: 09:54 [facility] 06/01 09:14 Order name: Urine Test (obtain specimen); Complete Time: 09:54 EC:50 Rate is 59 beats/min. Rhythm is regular. QRS [place] is Normal. ND interval is normal. QRS ms3 interval is normal. Clinical impression: Sinus bradycardia. Interpreted by me. Reviewed by me. Administered Medications: 09:45 Drug: Zofran (Ondansetron) 4 mg Route: IVP; Site: right antecubital; db 10:00 Follow up: Response: No adverse reaction ph 09:45 Drug: Ketorolac 15 mg Route: IVP; Site: right antecubital; db 10:00 Follow up: Response: No adverse reaction ph 11:31 Drug: Meclizine 25 mg {Note: pt took 1 pill =12.5 mg.} Route: PO; ph 12:00 Follow up: Response: No adverse reaction ph Disposition: 06/02 08:29 Co-signature as Attending Physician, Timothy COFFMAN was immediately available on-site ms3 in the Emergency Department for consultation in the care of the patient. . Disposition Summary: 06/01/22 11:55 Discharge Ordered Location: Home [facility] Problem: [facility] Symptoms: have improved [facility] Condition: Stable [facility] Diagnosis - Dizziness and giddiness 7 Followup: [facility] - With: Private Physician - When: 2 - 3 days - Reason: Recheck today's complaints Discharge Instructions: - Discharge Summary Sheet 7 - Dizziness 7 - Vertigo jh7 Forms: - Medication Reconciliation Form jh7 - Work release form jd3 - Thank You Letter jh7 Prescriptions: - Meclizine 25 mg Oral Tablet - take 1 tablet by ORAL route every 8 hours As needed; 30 tablet; Refills: 0, jh7 Product Selection Permitted Signatures: Dispatcher [employer] Mariangel Mills RN RN Susan Serra RN RN Timothy Alvarado, DO ms3 Linda Cavazos, ADULT EDUCATION MANAGER ADULT EDUCATION MANAGER 7 Stephany Tucker RN RN db Corrections: (The following items were deleted from the chart) 06/01 11:08 09:00 Associated signs and symptoms: Pertinent positives: Headache, fatigue, dizziness, 7 Pertinent negatives: abdominal pain, constipation, diarrhea, dysuria, fever, jh7 11:08 09:00 Patient reports nausea, dizziness, headache, and extreme fatigue for the past 2 jh7 weeks. Denies fever, cough, shortness of breath, chest pain, and congestion. History of migraines.. 7
--- NOTE | 2022-06-02 17:29 | EKG ---
Test Date: 2022-06-01 Test Time: 10:07:26 Foreman/[employer] Driving And Erection: MIKAELA MEASUREMENT RESULTS: Intervals: Rate: 59 VA: 212 QRSD: 70 QT: 404 QTc: 399 [place]: P: 34 VA: 212 QRS: 17 T: 42 INTERPRETIVE STATEMENTS: Sinus bradycardia with marked sinus arrhythmia with 1st degree AV block Cannot rule out Anterior infarct, age undetermined Abnormal ECG Compared to ECG 10/27/2019 23:29:17 First degree AV block now present Sinus rhythm no longer present Myocardial infarct finding still present Electronically Signed On 06-02-22 17:27:03 CDT by Rohit Bui
[2022-06-03 17:01] VITALS: TEMP 98.4
[2022-06-03 17:19] VITALS: BP 103/74; O2SAT 99
== END 2022-06-01 12:49 | disposition home or self-care (01) ==
LOC: ER 08:51
DX: R42 Dizziness and giddiness (principal); R51.9 Headache, unspecified; R53.83 Other fatigue
CPT/HCPCS: 93005; 85025; 80048; 36415; 83735; 80076; 84484; 71045; 96375; 96374; 99284; J8597; J2405; 81003; 81015

== ENCOUNTER → 2023-08-29 | Emergency (ER) | payer BC, OTHER ==
[~2023-08-29] MED LIST: DIPHENHYDRAMINE 50 MG/ML VIAL ONE; KETOROLAC 30 MG/ML INJ ONE; METOCLOPRAMIDE 10 MG/2mL INJ ONE; Magnesium Sulfate 2gm IVPB 2 G/50 ML BAG IV ONE; NA CHLORIDE 0.9% 1,000 ML ONE; NA CHLORIDE 0.9% 100 ML ONE; SUMATRIPTAN SUCC 6MG/0.5ML VIAL SQ ONE; VALPROATE NA 500 MG/5 ML INJ IV ONE; dexAMETHasone 10 MG/ML VIAL ONE
--- OUTSIDE RECORDS SUMMARY | 2023-08-29 08:03 | XMS REPORT | Continuity of Care Document ---
Author Name Unknown Address [address] [facility] [address] [place] [address] [facility] Address [address] 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 Name Role Phone Shanda Kim Primary Care Physicia n TRICIA SALVADOR Attending Clinician Tricia Swann CNM Attending Clinician [phone] Doctor Unassigned, [place] Attending Clinician U SHANDA Kumar Attending Clinician Unavail Elijah John MD Attending Clinician [phone] ELIJAH BATEMAN Attending Clinician UnavailDESHAUN Regalado Attending Clinician Shanda Valenzuela Attending Clinician + Lab, Adc Fam Pob I Attending Clinician CALEB Corona Attending Clinician Unavailable TRICIA SALVADOR Admitting Clinician ELIJAH Walters Admitting Clinician Sahil davis Payers Payer Name Policy Type Policy Number Effective Date Expirati on Date Source 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 02-19 00:00: 00 [facility] Heavy menses Heavy menses Disease Active 02-19 00:00: 00 [facility] Well woman exam Well woman exam Disease Active 2015-09 00:00: 00 [facility] Obesity (BMI 30-39.9) Obesity (BMI 30-39.9) Disease Active 2015-09 00:00: 00 [facility] Stress incontinen ce Stress incontinen ce Disease Active 2015-09 00:00: 00 [facility] History of tubal ligation History of tubal ligation Disease Active 01-29 00:00: 00 [facility] Contracept jessie management Contracept jessie management Disease Active 01-29 00:00: 00 [facility] Allergies, Adverse Reactions, Alerts Allergy Name Allergy Type Status Severity Reaction(s) Onset Date Inactive Date Treating Clinician Comments Source NO KNOWN ALLERGIE S Drug Class Active [facility] Social History Social Habit Start Date Stop Date Quantity Comments Source [facility] 2023-01-08 00:00:00 2023-01-08 00:00:00 [facility] Exposure to SARS-CoV-2 (event) 2022-12-28 00:00:00 2023-01-07 06:57:00 Not sure [facility] Alcohol intake 2017-11-25 00:00:00 2017-11-25 00:00:00 0 /d [facility] Sex Assigned At 1985 00:00:00 1985 00:00:00 [facility] Smoking Status Start Date Stop Date Source Never smoked tobacco [facility] Medications Ordered Medication Name Filled Medication Name Start Date Stop Date Current Medication? Ordering Clinician Indication Dosage Frequency Signature (SIG) Comments Components Source CITALOPRAM HYDROBROMID E (CELEXA ORAL) 01-08 11:03: 01-08 00:00 :00 No Take by mouth. [facility] CITALOPRAM HYDROBROMID E (CELEXA ORAL) 01-08 11:03: 26 01-08 00:00 :00 No Take by mouth. [facility] POLITICAL SCIENCE INSTRUCTOR THYROID 30 mg tablet 0 -16 00:00: 00 Yes 30mg Take 1 tablet by mouth in the morning. [facility] POLITICAL SCIENCE INSTRUCTOR THYROID 30 mg tablet 0 -16 00:00: 00 Yes 30mg Take 1 tablet by mouth in the morning. [facility] POLITICAL SCIENCE INSTRUCTOR THYROID 30 mg tablet 0 -16 00:00: 00 Yes 30mg Take 1 tablet by mouth in the morning. [facility] POLITICAL SCIENCE INSTRUCTOR THYROID 30 mg tablet 0 -16 00:00: 00 Yes 30mg Take 1 tablet by mouth in the morning. [facility] progesteron e 200 mg capsule 0 -30 00:00: 00 Yes 200mg Take 1 capsule by mouth in the morning. [facility] progesteron e 200 mg capsule 0 30 00:00: 00 Yes 200mg Take 1 capsule by mouth in the morning. [facility] progesteron e 200 mg capsule 2022-0 3-30 00:00: 00 Yes 200mg Take 1 capsule by mouth in the morning. [facility] progesteron e 200 mg capsule 2022-0 30 00:00: 00 Yes 200mg Take 1 capsule by mouth in the morning. [facility] acetaminoph en (TYLENOL) tablet 650 mg 10-19 21:45: 00 10-19 21:38 :00 No 650mg 650 mg, Oral, ONCE, 1 dose, On 10/19/22 at 1545, JANES [facility] ondansetron 4 mg tablet 10-19 00:00: 00 Yes [id number] 1-2 tablets every 8 hours as needed for nausea [facility] ondansetron 4 mg tablet 10-19 00:00: 00 Yes [id number] 1-2 tablets every 8 hours as needed for nausea [facility] ondansetron 4 mg tablet 10-19 00:00: 00 01-08 00:00 :00 No [id number] 1-2 tablets every 8 hours as needed for nausea [facility] ondansetron 4 mg tablet 10-19 00:00: 00 01-08 00:00 :00 No [id number] 1-2 tablets every 8 hours as needed for nausea [facility] amoxicillin -clavulanat e 875-125 mg per tablet 10-19 00:00: 00 10-27 05:59 :00 No [id number] 1{tbl} Take 1 tablet by mouth every 12 (twelve) hours for 7 days. [facility] CITALOPRAM HYDROBROMID E (CELEXA ORAL) 2016-09 09:05: 48 Yes Take by mouth. [facility] CITALOPRAM HYDROBROMID E (CELEXA ORAL) 2016-09 09:05: 48 Yes Take by mouth. [facility] norgestimat e-ethinyl estradiol (ORTHO TRI-CYCLEN, 28,) 0.18/0.215/ 0.25 mg-35 mcg (28) tablet 02-19 00:00: 00 Yes [id number] 1{tbl} Take 1 tablet by mouth daily. [facility] norgestimat e-ethinyl estradiol (ORTHO TRI-CYCLEN, 28,) 0.18/0.215/ 0.25 mg-35 mcg (28) tablet 02-19 00:00: 00 Yes [id number] 1{tbl} Take 1 tablet by mouth daily. [facility] norgestimat e-ethinyl estradiol (ORTHO TRI-CYCLEN, 28,) 0.18/0.215/ 0.25 mg-35 mcg (28) tablet 02-19 00:00: 01-08 00:00 :00 No [id number] 1{tbl} Take 1 tablet by mouth daily. [facility] norgestimat e-ethinyl estradiol (ORTHO TRI-CYCLEN, 28,) 0.18/0.215/ 0.25 mg-35 mcg (28) tablet 16 00:00: 00 01-08 00:00 :00 No [id number] 1{tbl} Take 1 tablet by mouth daily. [facility] Immunizations Ordered Immunization Name Filled Immunization Name Date Status Comments Source SARS-COV-2 COVID-19 PFIZER VACCINE 2021-09-04 00:00:00 Completed [facility] SARS-COV-2 COVID-19 PFIZER VACCINE 2021-09-04 00:00:00 Completed [facility] SARS-COV-2 COVID-19 PFIZER VACCINE 2021-09-04 00:00:00 Completed [facility] SARS-COV-2 COVID-19 PFIZER VACCINE 2021-07-24 00:00:00 Completed [facility] SARS-COV-2 COVID-19 PFIZER VACCINE 2021-07-24 00:00:00 Completed [facility] SARS-COV-2 COVID-19 PFIZER VACCINE 2021-07-24 00:00:00 Completed [facility] TD, NOS 2005-09-10 00:00:00 Completed [facility] TD, NOS 2005-09-10 00:00:00 Completed [facility] TD, NOS 2005-09-10 00:00:00 Completed [facility] TD, NOS 2005-09-10 00:00:00 Completed [facility] TD, NOS 2005-09-10 00:00:00 Completed [facility] TD, NOS Unknown Completed [facility] SARS-COV-2 COVID-19 PFIZER VACCINE Unknown Completed [facility] SARS-COV-2 COVID-19 PFIZER VACCINE Unknown Completed [facility] TD, NOS Unknown Completed [facility] SARS-COV-2 COVID-19 PFIZER VACCINE Unknown Completed [facility] SARS-COV-2 COVID-19 PFIZER VACCINE Unknown Completed [facility] Vital Signs Vital Name Observation Time Observation Value Comments S ource Systolic blood pressure 2023-01-08 15:39:00 117 mm[Hg] [facility] Diastolic blood pressure 2023-01-08 15:39:00 73 mm[Hg] [facility] Heart rate 2023-01-08 15:39:00 65 /min Un[facility] Body temperature 2023-01-08 15:39:00 36.67 Ana [facility] Respiratory rate 2023-01-08 15:39:00 18 /min [facility] Body height 2023-01-08 15:39:00 154.9 cm [facility] Body weight 2023-01-08 15:39:00 74.571 kg [facility] BMI 2023-01-08 15:39:00 31.06 kg/m2 [facility] Systolic blood pressure 2022-10-19 22:30:00 109 mm[Hg] [facility] Diastolic blood pressure 2022-10-19 22:30:00 85 mm[Hg] [facility] Heart rate 2022-10-19 22:30:00 68 [facility] 2022-10-19 22:30:00 15 /min [facility] Oxygen saturation in Arterial blood by Pulse oximetry 2022-10-19 22:30:00 97 /min [facility] Body temperature 2022-10-19 19:48:00 36.5 Ana [facility] Body height 2022-10-19 19:48:00 157.5 cm [facility] Body weight 2022-10-19 19:48:00 74.844 kg [facility] BMI 2022-10-19 19:48:00 30.18 kg/m2 [facility] Procedures Procedure Date / Time Performed Performing Clinician Source US PELVIS COMPLETE WITH TRANSVAGINAL 2023-01-15 22:33:30 Tricia Salvador [facility] CBC WITH DIFF 2023-01-08 16:47:00 Tricia Salvador [facility] HCV ANTIBODY 2023-01-08 16:47:00 [facility]2 AG-AB WITH REFLEX 2023-01-08 16:47:00 Tricia Salvador [facility] PAP SMEAR-LIQUID BASED-CP 2023-01-08 16:47:00 Tricia Salvador [facility] SYPHILIS IGG/IGM 2023-01-08 16:47:00 Tricia Salvador [facility] ASSIGNMENT OF BENEFITS 2023-01-08 14:48:07 Docto r Unassigned, [place] [facility] EKG-12 LEAD 2022-10-19 22:30:08 Elijah Bateman [facility] TEST, SERUM 2022-10-19 21:11:00 Akil Bateman [facility] TROPONIN I 2022-10-19 21:11:00 Elijah Bateman [facility] THYROID STIMULATING HORMONE 2022-10-19 21:11:00 Elijah Bateman [facility] COMP. METABOLIC PANEL ([id number]) 2022-10-19 21:11:00 Elijah Bateman [facility] CBC WITH DIFF 2022-10-19 21:11:00 Elijah Bateman Un [facility] COVID-19 (ID NOW RAPID TESTING) 2022-10-19 21:11:00 Elijah Bateman [facility] CONSENT/REFUSAL FOR DIAGNOSIS AND TREATMENT 2022-10-19 19:40:49 Doctor Unassigned, [place] [facility] Encounters Start Date/Time End Date/Time Encounter Type Admission Type Attending Clinicians Care Facility Care Department Encounter ID Source 2023-01-15 16:41:09 2023-01-15 23:59:00 Outpatient R TRICIA SALVADOR [facility] [id number] [facility] 2023-01-15 16:41:09 2023-01-15 23:59:00 Hospital Encounter Tricia Salvador [facility] [id number] [facility] 2023-01-12 00:00:00 2023-01-12 00:00:00 Patient Secure Msg Tricia Salvador [facility] INSIDE CHANNEL ACCOUNT MANAGER [facility] MATERNAL & CHILD [facility] [id number] [id number] [id number] [id number] [facility] 2023-01-08 10:15:00 2023-01-08 11:48:55 Outpatient R TRICIA SALVADOR [facility] [id number] [facility] 2023-01-08 10:15:00 2023-01-08 11:48:55 Office Visit Tricia Salvador [facility] INSIDE CHANNEL ACCOUNT MANAGER [facility] & CHILD [facility] [id number] [id number] [id number] [id number] [facility] 2023-01-08 00:00:00 2023-01-08 00:00:00 Orders Only Doctor Unassigned, [place] [facility] [id number] [id number] 4.2.7.2.686 [id number] [facility] 2022-10-19 13:49:00 2022-10-19 16:43:00 Emergency Elijah Bateman [facility] [id number] 350.1.13.10 4.2.7.2.686 [id number] [facility] 2022-10-19 13:49:00 2022-10-19 16:43:00 Emergency ELIJAH MELÉNDEZ [facility] ERT [id number] [facility] 2021-09-29 10:30:00 2021-09-29 10:30:00 Outpatient DESHAUN MARK [facility] [id number] [facility] 2021-09-29 10:30:00 2021-09-29 10:30:00 Outpatient DESHAUN MARK [facility] [id number] [facility] 2021-09-10 00:00:00 2021-09-10 00:00:00 Patient Secure Sahnda Mai [facility] INSIDE CHANNEL ACCOUNT MANAGER [facility] MATERNAL & CHILD [facility] 1.840.114 [id number] [id number] [id number] [facility] 2020-09-30 17:31:57 2020-09-30 17:51:57 Laboratory Only Lab, Adc Fam Pob I [facility] [id number] [id number] [id number] [id number] 2020-09-30 17:40:00 2020-09-30 17:40:00 Outpatient R [facility] [id number] [facility] 2020-09-30 17:40:00 2020-09-30 17:40:00 Outpatient R CALEB BLACK [facility] [id number] [facility] 2020-09-13 13:15:00 2020-09-13 13:15:00 Outpatient R SHANDA CURIEL [facility] [id number] [facility] Results Test Description Test Time Test Comments Results Result Co mments Source [facility] - SYPHILIS [id number] 15:20:40* Test Item Value Reference Range Interpretation Comme nts Syphilis IgG/IgM (test code = 09774-9) Non-reactive Non-reactive WATSON (test code = WATSON) Non-reactive - No serologic evidence of T. pallidum infection. Cannot exclude incubating or early syphilis. Submit a second specimen in 2-4 weeks if syphilis is clinically suspected. Equivocal - Further testing to follow. Reactive - Further testing to follow. Lab Interpretation (test code = 45913-7) Normal [facility] [id number] 10:45:29* Test Item Value Reference Range Interpretation Comme nts HCV Ab (test code = 22117-0) Negative HCV Semi-Quantitative (test code = 16486-6) 0.03 [facility] [id number] 10:45:29* Test Item Value Reference Range Interpretation Comme nts HCV Ab (test code = 53399-1) Negative HCV Semi-Quantitative (test code = 32112-7) 0.03 [facility] AG-AB WITH [id number] 06:45:50* Test Item Value Reference Range Interpretation Comme nts HIV Semi-quantitative (test code = 67437-9) 0.07 Negative WATSON (test code = WATSON) Non-reactive for HIV-1 antigen and HIV-1/HIV-2 antibodies. ?No laboratory evidence of HIV infection. ?Repeat in 2-4 weeks if acute HIV infection is suspected. [facility] AG-AB WITH [id number] 06:45:50* Test Item Value Reference Range Interpretation Comme nts HIV Semi-quantitative (test code = 80459-4) 0.07 Negative WATSON (test code = WATSON) Non-reactive for HIV-1 antigen and HIV-1/HIV-2 antibodies. ?No laboratory evidence of HIV infection. ?Repeat in 2-4 weeks if acute HIV infection is suspected. [facility] [id number] 04:29:01* Test Item Value Reference Range Interpretation Comme nts WBC (test code = 6690-2) 6.41 See_Comment [Automated [employer]] The system which generated this result transmitted reference range: 4.30 - 11.10 10*3/?L. The reference range was not used to interpret this result as normal/abnormal. RBC (test code = 789-8) 4.08 See_Comment [Automated [employer]] The system which generated this result transmitted reference range: 3.93 - 5.25 10*6/?L. The reference range was not used to interpret this result as normal/abnormal. HGB (test code = 718-7) 13.1 g/dL 11.6-15.0 HCT (test code = 4544-3) 38.9 % 35.7-45.2 MCV (test code = 787-2) 95.3 fL 80.6-95.5 MCH (test code = 785-6) 32.1 pg 25.9-32.8 MCHC (test code = 786-4) 33.7 g/dL 31.6-35.1 RDW-SD (test code = 10437-0) 44.2 fL 39.0-49.9 RDW-CV (test code = 788-0) 12.6 % 12.0-15.5 PLT (test code = 777-3) 254 See_Comment [Automated messa ge] The system which generated this result transmitted reference range: 166 - 358 10*3/?L. The reference range was not used to interpret this result as normal/abnormal. MPV (test code = 58365-9) 11.3 fL 9.5-12.9 NRBC/100 WBC (test code = 8932498355) 0.0 See_Comment [Automated me ssage] The system which generated this result transmitted reference range: 0.0 - 10.0 /100 WBCs. The reference range was not used to interpret this result as normal/abnormal. NRBC x10^3 (test code = 5326740526) See_Comment [Automated me ssage] The system which generated this result transmitted reference range: 10*3/?L. The reference range was not used to interpret this result as normal/abnormal. GRAN MAT (NEUT) % (test code = 770-8) 55.6 % IMM GRAN % (test code = 6944232905) 0.20 % LYMPH % (test code = 736-9) 36.2 % MONO % (test code = 5905-5) 5.5 % EOS % (test code = 713-8) 1.7 % BASO % (test code = 706-2) 0.8 % GRAN MAT x10^3(ANC) (test code = 5702968653) 3.57 10*3/uL 1.88-7.09 IMM GRAN x10^3 (test code = 8218554934) 0.00-0.06 LYMPH x10^3 (test code = 731-0) 2.32 10*3/uL 1.32-3.29 MONO x10^3 (test code = 742-7) 0.35 10*3/uL 0.33-0.92 EOS x10^3 (test code = 711-2) 0.11 10*3/uL 0.03-0.39 BASO x10^3 (test code = 704-7) 0.05 10*3/uL 0.01-0.07 [facility] WITH [id number] 04:29:01* Test Item Value Reference Range Interpretation Comme nts WBC (test code = 6690-2) 6.41 See_Comment [Automated messa ge] The system which generated this result transmitted reference range: 4.30 - 11.10 10*3/?L. The reference range was not used to interpret this result as normal/abnormal. RBC (test code = 789-8) 4.08 See_Comment [Automated messa ge] The system which generated this result transmitted reference range: 3.93 - 5.25 10*6/?L. The reference range was not used to interpret this result as normal/abnormal. HGB (test code = 718-7) 13.1 g/dL 11.6-15.0 HCT (test code = 4544-3) 38.9 % 35.7-45.2 MCV (test code = 787-2) 95.3 fL 80.6-95.5 MCH (test code = 785-6) 32.1 pg 25.9-32.8 MCHC (test code = 786-4) 33.7 g/dL 31.6-35.1 RDW-SD (test code = 60370-7) 44.2 fL 39.0-49.9 RDW-CV (test code = 788-0) 12.6 % 12.0-15.5 PLT (test code = 777-3) 254 See_Comment [Automated messa ge] The system which generated this result transmitted reference range: 166 - 358 10*3/?L. The reference range was not used to interpret this result as normal/abnormal. MPV (test code = 83196-0) 11.3 fL 9.5-12.9 NRBC/100 WBC (test code = 5278960975) 0.0 See_Comment [Automated me ssage] The system which generated this result transmitted reference range: 0.0 - 10.0 /100 WBCs. The reference range was not used to interpret this result as normal/abnormal. NRBC x10^3 (test code = 6908339155) See_Comment [Automated me ssage] The system which generated this result transmitted reference range: 10*3/?L. The reference range was not used to interpret this result as normal/abnormal. GRAN MAT (NEUT) % (test code = 770-8) 55.6 % IMM GRAN % (test code = 9335709691) 0.20 % LYMPH % (test code = 736-9) 36.2 % MONO % (test code = 5905-5) 5.5 % EOS % (test code = 713-8) 1.7 % BASO % (test code = 706-2) 0.8 % GRAN MAT x10^3(ANC) (test code = 8147877684) 3.57 10*3/uL 1.88-7.09 IMM GRAN x10^3 (test code = 7351717404) 0.00-0.06 LYMPH x10^3 (test code = 731-0) 2.32 10*3/uL 1.32-3.29 MONO x10^3 (test code = 742-7) 0.35 10*3/uL 0.33-0.92 EOS x10^3 (test code = 711-2) 0.11 10*3/uL 0.03-0.39 BASO x10^3 (test code = 704-7) 0.05 10*3/uL 0.01-0.07 [facility] [id number] 22:15:29 * Test Item Value Reference Range Interpretation Comme nts TSH (test code = 0509484196) 1.65 See_Comment [Automated messa ge] The system which generated this result transmitted reference range: 0.45 - 4.70 mIU/L. The reference range was not used to interpret this result as normal/abnormal. Lab Interpretation (test code = 14248-2) Normal [facility] [id number] 21:56:45* Test Item Value Reference Range Interpretation Comme nts TROPONIN I (test code = 8006120590) 0.008 ng/mL <=0.034 WATSON (test code = WATSON) Reference (Normal) Range (defined by the 99th percentile reference limit): <= 0.034 ng/mL Note: Cardiac troponin begins to rise 3-4 hours after the onset of ischemia. Repeat in 4-6 hours if the sample was drawn within 3-4 hours of the onset of the symptom and found normal. Diagnosis of myocardial injury is made with acute changes in cTn concentrations with at least one serial sample above the 99th percentile upper reference limit (URL), taken together with the patient's clinical presentation. Biotin has been reported to cause a negative bias, interpret results relative to patient's use of biotin. Lab Interpretation (test code = 48433-6) Normal [facility]. METABOLIC PANEL (23071)2022-10-19 21:46:40* Test Item Value Reference Range Interpretation Comme nts NA (test code = 1446471182) 137 mmol/L 135-145 K (test code = 0096526659) 3.8 mmol/L 3.5-5.0 CL (test code = 5976566049) 104 mmol/L 98-108 CO2 TOTAL (test code = 7332651911) 25 mmol/L 23-31 AGAP (test code = 9584176103) 8 2-16 BUN (test code = 0628521298) 10 mg/dL 7-23 GLUCOSE (test code = 8804998625) 98 mg/dL 70-110 CREATININE (test code = 3283163903) 0.64 mg/dL 0.50-1.04 TOTAL BILI (test code = 1794124681) 0.5 mg/dL 0.1-1.1 CALCIUM (test code = 4996580158) 8.6 mg/dL 8.6-10.6 T PROTEIN (test code = 9710925693) 7.0 g/dL 6.3-8.2 ALBUMIN (test code = 9085948577) 4.0 g/dL 3.5-5.0 ALK PHOS (test code = 0078089465) 70 U/L 34-122 ALTv (test code = 1742-6) 21 U/L 5-35 AST(SGOT) (test code = 5207464964) 23 U/L 13-40 eGFR (test code = 0086194091) 103.3 mL/min/1.73m2 WATSON (test code = WATSON) Association of Glomerular Filtration Rate (GFR) and Staging of Kidney Disease* + + +- +| GFR (mL/min/1.73 m2) ?| With Kidney Damage ?| ?Without Kidney Damage+ ------+ ----+ ------+| ?>90 ?| ?Stage one ?| ? Normal ?+ -+ + -+| ?60-89 ?| ?Stage two ?| ? Decreased GFR ? + + +- +| ?30-59 ?| ?Stage three ?| ? Stage three ? + + +- +| ?15-29 ?| ?Stage four ? | ? Stage four ?+ -+ + -+| ?<15 (or dialysis) ? ?| ?Stage five ? | ? Stage five ?+ -+ + -+ *Each stage assumes the associated GFR level has been in effect for at least three months. ?Stages 1 to 5, with or without kidney disease, indicate chronic kidney disease. Notes: Determination of stages one and two (with eGFR >59mL/min/1.73 m2) requires estimation of kidney damage for at least three months as defined by structural or functional abnormalities of the kidney, manifested by either:Pathological abnormalities or Markers of kidney damage (including abnormalities in the composition of the blood or urine or abnormalities in imaging tests). [facility], [id number] 21:43:16* Test Item Value Reference Range Interpretation Comme nts PREG SERUM (test code = 5593108554) Negative WATSON (test code = WATSON) Less than 10 IU/L. ?If low titer or ectopic is suspected, resubmit specimen in 48-72 hours. [facility] WITH [id number] 21:31:17* Test Item Value Reference Range Interpretation Comme nts WBC (test code = 6690-2) 7.27 See_Comment [Automated [email or web address]] The system which generated this result transmitted reference range: 4.30 - 11.10 10*3/?L. The reference range was not used to interpret this result as normal/abnormal. RBC (test code = 789-8) 4.02 See_Comment [Automated [email or web address]] The system which generated this result transmitted reference range: 3.93 - 5.25 10*6/?L. The reference range was not used to interpret this result as normal/abnormal. HGB (test code = 718-7) 13.0 g/dL 11.6-15.0 HCT (test code = 4544-3) 37.7 % 35.7-45.2 MCV (test code = 787-2) 93.8 fL 80.6-95.5 MCH (test code = 785-6) 32.3 pg 25.9-32.8 MCHC (test code = 786-4) 34.5 g/dL 31.6-35.1 RDW-SD (test code = 70824-4) 42.4 fL 39.0-49.9 RDW-CV (test code = 788-0) 12.3 % 12.0-15.5 PLT (test code = 777-3) 248 See_Comment [Automated messa ge] The system which generated this result transmitted reference range: 166 - 358 10*3/?L. The reference range was not used to interpret this result as normal/abnormal. MPV (test code = 12264-5) 10.7 fL 9.5-12.9 NRBC/100 WBC (test code = 4403020790) 0.0 See_Comment [Automated me ssage] The system which generated this result transmitted reference range: 0.0 - 10.0 /100 WBCs. The reference range was not used to interpret this result as normal/abnormal. NRBC x10^3 (test code = 7775769983) See_Comment [Automated me ssage] The system which generated this result transmitted reference range: 10*3/?L. The reference range was not used to interpret this result as normal/abnormal. GRAN MAT (NEUT) % (test code = 770-8) 62.1 % IMM GRAN % (test code = 1921126300) 0.40 % LYMPH % (test code = 736-9) 31.1 % MONO % (test code = 5905-5) 5.0 % EOS % (test code = 713-8) 0.8 % BASO % (test code = 706-2) 0.6 % GRAN MAT x10^3(ANC) (test code = 5383472115) 4.52 10*3/uL 1.88-7.09 IMM GRAN x10^3 (test code = 6448295953) 0.03 10*3/uL 0.00-0.06 LYMPH x10^3 (test code = 731-0) 2.26 10*3/uL 1.32-3.29 MONO x10^3 (test code = 742-7) 0.36 10*3/uL 0.33-0.92 EOS x10^3 (test code = 711-2) 0.06 10*3/uL 0.03-0.39 BASO x10^3 (test code = 704-7) 0.04 10*3/uL 0.01-0.07 [facility]"
[2023-08-29 08:48] LABS: Absolute Lymphocytes (CBC) 2.4 K/uL (0.7-4.9); Hematocrit 38.4 % (36.0-45.0); Lymphocytes % 28.2 % (15.3-44.8); MCV 95.3 fL (80-100); MPV 8.3 fL (7.6-11.3); Platelets 256 thou/uL (152-406); RBC Red Blood Cell Count 4.03 M/uL (3.86-4.86)
[2023-08-29 09:05] LABS: Albumin 3.3 g/dL (3.4-5.0); Bilirubin Direct 0.1 mg/dL (0-0.2); Bilirubin Indirect, Calculated 0.3 mg/dL (0.2-0.8); Bilirubin Total 0.4 mg/dL (0.2-1.0); Potassium 3.4 mEq/L (3.5-5.1); Protein, Total 7.1 g/dL (6.4-8.2)
--- NOTE | 2023-08-29 09:31 | RAD REPORT ---
EXAM DESCRIPTION: CT - Head Brain Wo Cont - 08/29/2023 9:02 am CLINICAL HISTORY: HEADACHE COMPARISON: No comparisons TECHNIQUE: Noncontrast head CT images were obtained without IV contrast. Multiplanar reformats were generated and reviewed. All CT scans are performed using dose optimization technique as appropriate and may include automated exposure control or mA/KV adjustment according to patient size. FINDINGS: No intracranial hemorrhage, mass, or edema. Midline structures are unremarkable. Normal ventricular caliber for age. Kaur-white matter differentiation is preserved, without evidence of acute infarct. No abnormal extra- axial fluid collections. Mastoid air cells and visualized portions of the paranasal sinuses are clear. No acute bony findings. IMPRESSION: No evidence of an acute intracranial process.
--- NOTE | 2023-08-29 10:59 | ER ---
Nurse's Notes [facility] Name: Nora Dsouza Age: 38 yrs Sex: Female : 1985 Arrival Date: 08/29/2023 Time: 07:59 Bed 13 Private MD: Diagnosis: Headache Presentation: 08/29 08:13 Chief complaint: Patient states: Migraine x 3 days, worse with laying down, pain to jl7 left parietal area. Reports taking 1,000 mg Tylenol q2 hrs for the last 3 days. Reports N/V. Coronavirus screen: At this time, the client does not indicate any symptoms associated with coronavirus-19. Ebola Screen: No symptoms or risks identified at this time. Initial Sepsis Screen: Does the patient meet any 2 criteria? No. Patient's initial sepsis screen is negative. Does the patient have a suspected source of infection? No. Patient's initial sepsis screen is negative. Risk Assessment: Do you want to hurt yourself or someone else? Patient reports no desire to harm self or others. Onset of symptoms was August 26, 2023. 08:13 Method Of Arrival: Ambulatory [facility] 08:13 Acuity: EDMUND 3 jl7 Triage Assessment: 08:16 General: Appears in no apparent distress. uncomfortable, Behavior is calm, cooperative, jl7 appropriate for age. Pain: Complains of pain in DENNY Pain currently is 8 out of 10 on a pain scale. GI: Reports nausea, vomiting. 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 - Social history:: Smoking status: Patient denies any tobacco usage or history of. - Family history:: not pertinent. Screenin:20 [facility] ED Fall Risk Assessment (Adult) History of falling in the last 3 months, rs5 including since admission No falls in past 3 months (0 pts) Confusion or Disorientation No (0 pts) Intoxicated or Sedated No (0 pts) Impaired Gait No (0 pts) Mobility Assist Device Used No (0 pt) Altered Elimination No (0 pt) Score/Fall Risk Level 0 - 2 = Low Risk Oriented to surroundings, Maintained a safe environment. Abuse screen: Denies threats or abuse. Nutritional screening: No deficits noted. Tuberculosis screening: No symptoms or risk factors identified. Assessment: 08:20 General: Appears in no apparent distress. uncomfortable, Behavior is calm, cooperative. rs5 Pain: Complains of pain in head Pain does not radiate. Pain currently is 8 out of 10 on a pain scale. Quality of pain is described as aching, Pain began 2-3 days ago. Is continuous. Neuro: Level of Consciousness is awake, alert, obeys commands, Oriented to person, place, time, situation, [employer] are equal bilaterally Moves all extremities. Gait is steady, Speech is normal, Facial symmetry appears normal, Pupils are PERRLA, Pupil Size: 3 mm Intact. 08:20 Cardiovascular: Heart tones S1 S2 present Rhythm is regular. Respiratory: Airway is rs5 patent Respiratory effort is even, unlabored, Respiratory pattern is regular, symmetrical, Breath sounds are clear bilaterally. GI: Abdomen is round non-distended, Bowel sounds present X 4 quads. Abd is soft and non tender X 4 quads. Reports nausea. : No signs and/or symptoms were reported regarding the genitourinary system. EENT: No signs and/or symptoms were reported regarding the EENT system. Derm: Skin is intact, Skin is pink, warm \T\ dry. Musculoskeletal: Range of motion: intact in all extremities. 09:02 Reassessment: Patient and/or family updated on plan of care and expected duration. Pain rs5 level reassessed. Patient is alert, oriented x 3, equal unlabored respirations, skin warm/dry/pink. Patient denies pain at this time. Patient states feeling better. Patient states symptoms have improved. 09:20 Reassessment: Provider notified pt is reexperiencing pain. Pain: Complains of pain in rs5 head Pain does not radiate. Pain currently is 7 out of 10 on a pain scale. Quality of pain is described as aching, Is continuous. 09:30 Reassessment: No changes from previously documented assessment. rs5 10:00 Reassessment: To bedside for med adm. rs5 11:00 Reassessment: Patient and/or family updated on plan of care and expected duration. Pain rs5 level reassessed. Patient is alert, oriented x 3, equal unlabored respirations, skin warm/dry/pink. Patient denies pain at this time. Patient states feeling better. Patient states symptoms have improved. Vital Signs: 08:13 BP 126 / 88; Pulse 86; Resp 17; Temp 97.7; Pulse Ox 99% ; Weight 65.77 kg; Height 5 ft. jl7 1 in. ; Pain 8/10; 08:30 BP 119 / 83; Pulse 80; Resp 18; Temp 97.8(O); Pulse Ox 99% on R/A; rs5 09:45 BP 122 / 80; Pulse 78; Resp 17; Pulse Ox 99% on R/A; rs5 10:50 BP 117 / 79; Pulse 77; Resp 18; Pulse Ox 99% on R/A; rs5 08:13 Body Mass Index 27.40 (65.77 kg, 154.94 cm) jl7 08:13 Pain Scale: Adult jl7 ED Course: 08:04 Patient arrived in ED. ts1 08:07 Supa Perales MD is Attending Physician. rt 08:16 Triage completed. jl7 08:16 Arm band placed on right wrist. jl7 08:20 Patient has correct armband on for positive identification. Bed in low position. Call rs5 light in reach. Side rails up X2. 08:31 Paras Holman, RN is Primary Nurse. rs5 09:04 CT Head Brain wo Cont In Process Unspecified. EDMS 09:18 No provider procedures requiring assistance completed. rs5 11:01 IV discontinued, intact, bleeding controlled, No redness/swelling at site. Pressure rs5 dressing applied. Administered Medications: 08:40 Drug: metoCLOPramide IVP 10 mg IVP once; over 1 to 2 minutes Route: IVP; Site: left rs5 antecubital; 09:01 Follow up: Response: No adverse reaction rs5 08:40 Drug: diphenhydrAMINE IVP 25 mg IVP once Route: IVP; Site: left antecubital; rs5 09:01 Follow up: Response: No adverse reaction rs5 08:40 Drug: Magnesium Sulfate IVPB 2 grams IVPB once over 2 hrs Route: IVPB; Infused Over: 2 rs5 hrs; Site: left antecubital; 09:01 Follow up: Response: No adverse reaction rs5 08:40 Drug: Ketorolac IVP 15 mg IVP once Route: IVP; Site: left antecubital; rs5 09:01 Follow up: Response: No adverse reaction; Pain is decreased rs5 08:40 Drug: NS 0.9% IV 1000 ml IV at 1 bolus Per protocol; 1000 mL bolus Route: IV; Rate: 1 rs5 bolus; Site: left antecubital; 09:01 Follow up: Response: No adverse reaction rs5 09:40 Drug: Valproic Acid IV 500 mg IV at calculated rate once over 60 mins; (mix in 100 mL rs5 NS) Route: IV; Rate: calculated rate; Infused Over: 60 mins; Site: left antecubital; 10:02 Follow up: Response: No adverse reaction rs5 09:40 Drug: Decadron - Dexamethasone IVP 10 mg IVP once Route: IVP; Site: left antecubital; rs5 10:02 Follow up: Response: No adverse reaction rs5 10:00 Drug: SUMAtriptan Sub-Q 4 mg Sub-Q once Route: Sub-Q; Site: left upper arm; rs5 10:20 Follow up: Response: No adverse reaction rs5 10:00 Drug: Ketorolac IVP 15 mg IVP once Route: IVP; Site: left antecubital; rs5 10:20 Follow up: Response: No adverse reaction rs5 Medication: 09:18 VIS not applicable for this client. rs5 Outcome: 10:59 Discharge ordered by . rt 11:01 Discharged to home ambulatory, rs5 11:01 Condition: stable 11:01 Discharge instructions given to patient, Instructed on discharge instructions, follow up and referral plans. medication usage, Demonstrated understanding of instructions, follow-up care, medications, Prescriptions given X 1, 11:13 Patient left the ED. rs5 Signatures: Dispatcher [employer] EDMS Dave Miranda RN RN jl7 Supa Perales MD MD rt Paras Holman RN RN rs5 Rosy Ji PAS PAS ts1 Corrections: (The following items were deleted from the chart) 09:01 08:00 metoCLOPramide IVP 10 mg IVP in left antecubital rs5 rs5 09:15 09:15 Response: No adverse reaction; Pain is decreased rs5 rs5 09:16 08:20 GI: Abdomen is round non-distended, Bowel sounds present X 4 quads. Abd is soft rs5 and non tender X 4 quads. rs5 11:37 11:02 BP 117 / 79; Pulse 77bpm; Resp 18bpm; Pulse Ox 99% RA; rs5 rs5
--- NOTE | 2023-08-29 10:59 | EDPHYS ---
Physician Documentation [facility] Name: Nora Dsouza Age: 38 yrs Sex: Female : 1985 Arrival Date: 08/29/2023 Time: 07:59 Bed 13 Private MD: ED Physician Supa Preales HPI: 08/29 08:41 This 38 yrs old Female presents to ER via Ambulatory with complaints of Migranes, rt Vomiting. 09:03 Patient presents to the ED with 3 days of left-sided headache consistent with prior rt migraines, but worse in intensity. Does get modest relief with Tylenol. Patient has had nausea, vomiting, denies other acute complaints. Symptoms are moderate in severity, no other aggravating or elevating factors.. 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 - Social history:: Smoking status: Patient denies any tobacco usage or history of. - Family history:: not pertinent. ROS: 09:03 Constitutional: Negative for fever, chills, and weight loss, Cardiovascular: Negative rt for chest pain, palpitations, and edema, Respiratory: Negative for shortness of breath, cough, wheezing, and pleuritic chest pain, MS/Extremity: Negative for injury and deformity, Skin: Negative for injury, rash, and discoloration, Psych: Negative for depression, anxiety, suicide ideation, homicidal ideation, and hallucinations, 09:03 Abdomen/GI: Positive for nausea and vomiting, Negative for abdominal pain, 09:03 Neuro: Positive for headache, Negative for altered mental status, Exam: 09:03 Constitutional: This is a well developed, well nourished patient who is awake, alert, rt and in no acute distress. Head/Face: Normocephalic, atraumatic. Chest/axilla: Normal chest wall appearance and motion. Nontender with no deformity. No lesions are appreciated. Cardiovascular: Regular rate and rhythm with a normal S1 and S2. No gallops, murmurs, or rubs. Normal PMI, no JVD. No pulse deficits. Respiratory: Lungs have equal breath sounds bilaterally, clear to auscultation and percussion. No rales, rhonchi or wheezes noted. No increased work of breathing, no retractions or nasal flaring. Abdomen/GI: Soft, non-tender, with normal bowel sounds. No distension or tympany. No guarding or rebound. No evidence of tenderness throughout. Skin: Warm, dry with normal turgor. Normal color with no rashes, no lesions, and no evidence of cellulitis. MS/ Extremity: Pulses equal, no cyanosis. Neurovascular intact. Full, normal range of motion. Neuro: Awake and alert, GCS 15, oriented to person, place, time, and situation. Cranial nerves II-XII grossly intact. Motor strength 5/5 in all extremities. Sensory grossly intact. Cerebellar exam normal. Normal gait. Psych: Awake, alert, with orientation to person, place and time. Behavior, mood, and affect are within normal limits. 09:03 Neck: Supple, full ROM, no meningismus, Vital Signs: 08:13 BP 126 / 88; Pulse 86; Resp 17; Temp 97.7; Pulse Ox 99% ; Weight 65.77 kg; Height 5 ft. jl7 1 in. ; Pain 8/10; 08:30 BP 119 / 83; Pulse 80; Resp 18; Temp 97.8(O); Pulse Ox 99% on R/A; rs5 09:45 BP 122 / 80; Pulse 78; Resp 17; Pulse Ox 99% on R/A; rs5 10:50 BP 117 / 79; Pulse 77; Resp 18; Pulse Ox 99% on R/A; rs5 08:13 Body Mass Index 27.40 (65.77 kg, 154.94 cm) jl7 08:13 Pain Scale: Adult jl7 MDM: 08:22 Patient medically screened. rt 11:13 Differential diagnosis: Migraine, intracranial hemorrhage, tumor. Data reviewed: vital rt signs, nurses notes, lab test result(s), radiologic studies. I considered the following discharge prescriptions or medication management in the emergency department Medications were administered in the Emergency Department. See MAR. Independent interpretation of the following test(s) in the Emergency Department CT Scan: My interpretation is No emergency room interpretation of CT scan images. Test considered but Not performed: Other Details Patient's presentation is not consistent with subarachnoid hemorrhage, meningitis, encephalitis, lumbar pressures not indicated. Care significantly affected by the following chronic conditions: Migraine headaches. Counseling: I had a detailed discussion with the patient and/or guardian regarding the historical points, exam findings, and any diagnostic results supporting the discharge/admit diagnosis, lab results, radiology results, the need for outpatient follow up, to return to the emergency department if symptoms worsen or persist or if there are any questions or concerns that arise at home. Response to treatment: the patient's symptoms have resolved after treatment. 08/29 08:31 Order name: CBC with Diff; Complete Time: 08:59 rt 08/29 08:31 Order name: BMP; Complete Time: 09:28 rt 08/29 08:31 Order name: LFT's; Complete Time: 09:28 rt 08/29 08:59 Order name: Acetaminophen; Complete Time: 09:28 rt 08/29 08:31 Order name: CT Head Brain wo Cont; Complete Time: 09:32 rt Administered Medications: 08:40 Drug: metoCLOPramide IVP 10 mg IVP once; over 1 to 2 minutes Route: IVP; Site: left rs5 antecubital; 09:01 Follow up: Response: No adverse reaction rs5 08:40 Drug: diphenhydrAMINE IVP 25 mg IVP once Route: IVP; Site: left antecubital; rs5 09:01 Follow up: Response: No adverse reaction rs5 08:40 Drug: Magnesium Sulfate IVPB 2 grams IVPB once over 2 hrs Route: IVPB; Infused Over: 2 rs5 hrs; Site: left antecubital; 09:01 Follow up: Response: No adverse reaction rs5 08:40 Drug: Ketorolac IVP 15 mg IVP once Route: IVP; Site: left antecubital; rs5 09:01 Follow up: Response: No adverse reaction; Pain is decreased rs5 08:40 Drug: NS 0.9% IV 1000 ml IV at 1 bolus Per protocol; 1000 mL bolus Route: IV; Rate: 1 rs5 bolus; Site: left antecubital; 09:01 Follow up: Response: No adverse reaction rs5 09:40 Drug: Valproic Acid IV 500 mg IV at calculated rate once over 60 mins; (mix in 100 mL rs5 NS) Route: IV; Rate: calculated rate; Infused Over: 60 mins; Site: left antecubital; 10:02 Follow up: Response: No adverse reaction rs5 09:40 Drug: Decadron - Dexamethasone IVP 10 mg IVP once Route: IVP; Site: left antecubital; rs5 10:02 Follow up: Response: No adverse reaction rs5 10:00 Drug: SUMAtriptan Sub-Q 4 mg Sub-Q once Route: Sub-Q; Site: left upper arm; rs5 10:20 Follow up: Response: No adverse reaction rs5 10:00 Drug: Ketorolac IVP 15 mg IVP once Route: IVP; Site: left antecubital; rs5 10:20 Follow up: Response: No adverse reaction rs5 Disposition Summary: 08/29/23 10:59 Discharge Ordered Notes: Location: Home rt Problem: new rt Symptoms: are resolved rt Condition: Stable rt Diagnosis - Headache rt Followup: rt - With: Private Physician - When: 2 - 3 days - Reason: Discharge Instructions: - Discharge Summary Sheet rt - General Headache Without Cause rt - Migraine Headache rt Forms: - Medication Reconciliation Form rt - Thank You Letter rt - Antibiotic Education rt - Prescription Opioid Use rt - Patient Portal Instructions rt - Leadership Thank You Letter rt Prescriptions: - sumatriptan 10 mg/actuation Nasal spray, non-aerosol - spray 1 spray INTRANASAL route once administer into one nostril as a single rt dose; if headache returns, dose may be repeated once after 1 hour, not to exceed 3 doses per day; 9 Each; Refills: 0, Product Selection Permitted Signatures: Dispatcher [employer] Dave Ramírez RN RN jl7 Supa Perales MD MD rt Paras Holman RN RN rs5
[2023-08-29 12:00] VITALS: O2SAT 99
[2023-08-29 12:07] VITALS: BP 119/83; TEMP 97.8
== END ==
LOC: ER 07:59
DX: R51.9 Headache, unspecified (principal); Z91.048 Other nonmedicinal substance allergy status
CPT/HCPCS: 85025; 80048; 36415; 80076; 70450; 96375; 96372; 96374; 99284; 80143; J3030; J3475; J2765; J1200; J1100; J7030

== ENCOUNTER 2024-09-16 05:01 | Emergency (ER) | payer OTHER ==
[2024-09-16] MEDS ORDERED: KETOROLAC 30 MG/ML INJ ONE (05:20)
[2024-09-16] MEDS ORDERED: dexAMETHasone 10 MG/ML VIAL ONE (05:20)
[2024-09-16] MEDS ORDERED: DIPHENHYDRAMINE 50 MG/ML VIAL ONE (05:21)
[2024-09-16] MEDS ORDERED: METOCLOPRAMIDE 10 MG/2mL INJ ONE (05:21)
[2024-09-16] MEDS ORDERED: NA CHLORIDE 0.9% 1,000 ML ONE (05:21)
[2024-09-16 05:43] LABS: Absolute Basophils 0.1 K/uL (0-0.5); Absolute Eosinophils 0.1 K/uL (0-0.5); Absolute Monocytes 0.4 K/uL (0.1-1.3); Absolute Neutrophil 3.8 K/uL (1.8-8.0); Basophils % 0.8 % (0-1.3); Eosinophils % 1.5 % (0-4.4); Hematocrit 38.4 % (36.0-45.0); Hemoglobin 13.3 g/dL (12.0-15.0); Lymphocytes % 40.4 % (15.3-44.8); MCH 32.9 pg (27.0-35.0); MCHC 34.7 g/dL (32.0-36.0); MCV 94.9 fL (80-100); MPV 8.4 fL (7.6-11.3); Monocytes % 5.8 % (3.3-12.3); Neutrophils % 51.5 % (41.7-73.7); Nucleated Red Blood Cells % 0.1 % (0-0); Platelets 277 thou/uL (152-406); RBC Red Blood Cell Count 4.05 M/uL (3.86-4.86); Red Cell Distribution Width 12.9 % (12.1-15.2)
[2024-09-16 06:03] LABS: Anion Gap 6.6 mEq/L (5.0-15.0); Potassium 3.6 mEq/L (3.5-5.1)
--- NOTE | 2024-09-16 06:11 | EDPHYS ---
Physician Documentation [facility] Name: Nora Dsouza Age: 39 yrs Sex: Female : 1985 Arrival Date: 09/16/2024 Time: 05:01 Bed 6 Private MD: ED Physician Som Luis HPI: 09/16 05:15 This 39 yrs old Female presents to ER via Ambulatory with complaints of ec2 Headache. 05:15 Patient arrives today for evaluation of a headache. Patient reports that she has a ec2 history of migraines and this is typical for her. Complains of nausea. Has been taken Tylenol and ibuprofen with minimal alleviation in symptoms.. 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 - Infectious Disease History:: Denies. - Social history:: Smoking status: Patient denies any tobacco usage or history of. ROS: 05:15 Constitutional: as per hpi ec2 Exam: 05:15 Constitutional: GEN: NAD Head: atraumatic Eyes: EOMI Ears: External ears are ec2 normal. CV: regular rate LUNGS: no respiratory distress ABD: non-distended SKIN: no evidence of rashes MSK: no evidence of trauma Vital Signs: 05:10 BP 123 / 83; Pulse 73; Resp 18; Temp 97.7; Pulse Ox 99% ; Weight 74.84 kg; Height 5 ft. cp4 1 in. ; Pain 10/10; 06:06 BP 107 / 69; Pulse 75; Resp 18; Pulse Ox 97% ; cp4 05:10 Body Mass Index 31.18 (74.84 kg, 154.94 cm) cp4 05:10 Pain Scale: Adult cp4 MDM: 05:05 Medical Screening Exam initiated ec2 05:15 Data reviewed: vital signs, nurses notes. ED course: Patient arrives today for ec2 evaluation of a headache. Examination is unrevealing. Will obtain lab work, treat the patient's headache. Suspect migrainous symptoms. Doubt intracranial brain bleed or mass given history of migraines.. 06:10 ED course: Lab work unrevealing. On reassessment patient with marked improvement in ec2 symptoms. Will discharge home. Return precautions given.. 09/16 05:13 Order name: CBC with Diff; Complete Time: 05:51 ec2 09/16 05:13 Order name: BMP; Complete Time: 06:10 ec2 09/16 05:13 Order name: IV; Complete Time: 05:28 ec2 Administered Medications: 05:27 Drug: NS 0.9% IV 500 ml 500 ml IV at 1 bolus once; to be given as a bolus over 30 cp4 minutes Volume: 500 ml; Route: IV; Rate: 1 bolus; Site: right antecubital; 06:19 Follow up: Response: No adverse reaction; IV Status: Completed infusion cp4 05:27 Not Given (Patient Refused): mg IVP once cp4 05:28 Drug: metoCLOPramide IVP 10 mg IVP once; over 1 to 2 minutes Route: IVP; Site: right cp4 antecubital; 06:20 Follow up: Response: No adverse reaction; Pain is decreased cp4 05:28 Drug: Ketorolac IVP 15 mg IVP once Route: IVP; Site: right antecubital; cp4 06:20 Follow up: Response: No adverse reaction; Pain is decreased cp4 05:28 Drug: Decadron - Dexamethasone IVP 10 mg IVP once Route: IVP; Site: right antecubital; cp4 06:20 Follow up: Response: No adverse reaction; Pain is decreased cp4 Disposition Summary: 09/16/24 06:11 Discharge Ordered Notes: Location: Home ec2 Condition: Stable ec2 Diagnosis - Headache ec2 Followup: ec2 - With: Private Physician - When: - Reason: Re-evaluation by your physician Discharge Instructions: - Discharge Summary Sheet ec2 - General Headache Without Cause ec2 Forms: - Medication Reconciliation Form ec2 - Antibiotic Education ec2 - Prescription Opioid Use ec2 - Patient Portal Instructions ec2 - Leadership Thank You Letter ec2 Prescriptions: - Compazine 10 mg Oral Tablet - take 1 tablet ORAL route every 8 hours As needed; 20 tablet; Refills: 0, ec2 Product Selection Permitted Signatures: Dispatcher [employer] Som Connolly MD MD ec2 [place] Butcher cp4
--- NOTE | 2024-09-16 06:11 | ER ---
Nurse's Notes [facility] Name: Nora Dsouza Age: 39 yrs Sex: Female : 1985 Arrival Date: 09/16/2024 Time: 05:01 Bed 6 Private MD: Diagnosis: Headache Presentation: 09/16 05:10 Chief complaint: Patient states: migraine since Wednesday. Reports nausea and vomiting. cp4 Coronavirus screen: Client denies travel out of the [place] in the last 14 days. At this time, the client does not indicate any symptoms associated with coronavirus-19. Ebola Screen: Patient negative for fever greater than or equal to 101.5 degrees Fahrenheit, and additional compatible Ebola Virus Disease symptoms Patient denies exposure to infectious person. Patient denies travel to an Ebola-affected area in the 21 days before illness onset. No symptoms or risks identified at this time. Initial Sepsis Screen: Does the patient meet any 2 criteria? No. Patient's initial sepsis screen is negative. Does the patient have a suspected source of infection? No. Patient's initial sepsis screen is negative. Risk Assessment: Do you want to hurt yourself or someone else? Patient reports no desire to harm self or others. Onset of symptoms was September 12, 2024. 05:10 Method Of Arrival: Ambulatory [facility] 05:10 Acuity: EDMUND 3 cp4 Triage Assessment: 05:11 Headache History: The patient has had previous headaches and this one is similar to cp4 previous episodes. General: Appears in no apparent distress. uncomfortable, Behavior is calm, cooperative, appropriate for age. Pain: Complains of pain in head Pain does not radiate. Pain currently is 10 out of 10 on a pain scale. Pain began 2-3 days ago. Pain: Also complains of nausea. EENT: No deficits noted. Neuro: Level of Consciousness is awake, alert, obeys commands, Oriented to person, place, time, situation. Cardiovascular: Patient's skin is warm and dry. Respiratory: Airway is patent Respiratory effort is even, unlabored. GI: Reports nausea, vomiting. : No signs and/or symptoms were reported regarding the genitourinary system. Derm: No signs and/or symptoms reported regarding the dermatologic system. Musculoskeletal: No signs and/or symptoms reported regarding the musculoskeletal system. ELDERLY CAREGIVER: 05:11 Not cp4 Historical: - Allergies: 05:11 Iodine; cp4 - PMHx: 05:11 Migraines; cp4 - PSHx: 05:11 section; tubal ligation; Tummy tuck; cp4 - Immunization history:: Adult Immunizations up to date. - Infectious Disease History:: Denies. - Social history:: Smoking status: Patient denies any tobacco usage or history of. Screenin:16 [place] ED Fall Risk Assessment (Adult) History of falling in the last 3 months, cp4 including since admission No falls in past 3 months (0 pts) Confusion or Disorientation No (0 pts) Intoxicated or Sedated No (0 pts) Impaired Gait No (0 pts) Mobility Assist Device Used No (0 pt) Altered Elimination No (0 pt) Score/Fall Risk Level 0 - 2 = Low Risk Oriented to surroundings, Maintained a safe environment, Assessed \T\ reinforced patient's understanding of fall precautions, Hourly rounding (assess needs \T\ fall precautionary measures) done. Abuse screen: Denies threats or abuse. Nutritional screening: No deficits noted. Tuberculosis screening: No symptoms or risk factors identified. Assessment: 05:16 Reassessment: No changes from previously documented assessment. cp4 Vital Signs: 05:10 BP 123 / 83; Pulse 73; Resp 18; Temp 97.7; Pulse Ox 99% ; Weight 74.84 kg; Height 5 ft. cp4 1 in. ; Pain 10/10; 06:06 BP 107 / 69; Pulse 75; Resp 18; Pulse Ox 97% ; cp4 05:10 Body Mass Index 31.18 (74.84 kg, 154.94 cm) cp4 05:10 Pain Scale: Adult cp4 ED Course: 05:02 Patient arrived in ED. [email or web address] 05:05 Som Luis MD is Attending Physician. ec2 05:10 Georgia Butcher is Primary Nurse. cp4 05:11 Triage completed. cp4 05:11 Arm band placed on right wrist. Patient placed in waiting room. cp4 05:16 Bed in low position. Call light in reach. Side rails up X 1. cp4 05:16 No provider procedures requiring assistance completed. cp4 05:18 Inserted saline lock: 22 gauge in right antecubital area, using aseptic technique. oe Blood collected. Flushed with 10 mL NS. 06:17 Provided Education on: headaches. cp4 06:17 intact, bleeding controlled, No redness/swelling at site. Pressure dressing applied. cp4 Administered Medications: 05:27 Drug: NS 0.9% IV 500 ml 500 ml IV at 1 bolus once; to be given as a bolus over 30 cp4 minutes Volume: 500 ml; Route: IV; Rate: 1 bolus; Site: right antecubital; 06:19 Follow up: Response: No adverse reaction; IV Status: Completed infusion cp4 05:27 Not Given (Patient Refused): [id number] mg IVP once cp4 05:28 Drug: metoCLOPramide IVP 10 mg IVP once; over 1 to 2 minutes Route: IVP; Site: right cp4 antecubital; 06:20 Follow up: Response: No adverse reaction; Pain is decreased cp4 05:28 Drug: Ketorolac IVP 15 mg IVP once Route: IVP; Site: right antecubital; cp4 06:20 Follow up: Response: No adverse reaction; Pain is decreased cp4 05:28 Drug: Decadron - Dexamethasone IVP 10 mg IVP once Route: IVP; Site: right antecubital; cp4 06:20 Follow up: Response: No adverse reaction; Pain is decreased cp4 Medication: 05:16 VIS not applicable for this client. cp4 Outcome: 06:11 Discharge ordered by . ec2 06:17 Discharged to home ambulatory, cp4 06:17 Condition: stable 06:17 Discharge instructions given to patient, Instructed on discharge instructions, follow up and referral plans. medication usage, Demonstrated understanding of instructions, follow-up care, medications, Prescriptions given X 1, 06:21 Patient left the ED. cp4 Signatures: Arie Cheung Jennifer [email or web address] Som Luis MD MD ec2 Georgia Butcher cp4
[2024-09-19 15:05] VITALS: BP 107/69; TEMP 97.7; O2SAT 97
== END 2024-09-16 06:21 | disposition home or self-care (01) ==
LOC: ER 05:01
DX: R51.9 Headache, unspecified (principal); Z88.8 Allergy status to other drugs, medicaments and biological substances
CPT/HCPCS: 96361; 85025; 80048; 36415; 96375; 96374; 99284; J2765; J1200; J1100; J7030

== ENCOUNTER 2024-12-30 14:11 | Emergency (ER) | payer OTHER ==
--- OUTSIDE RECORDS SUMMARY | 2024-12-30 14:14 | XMS REPORT | Continuity of Care Document ---
Author Name Unknown Address [address] [place] [address] [facility] Address [address] [place] [address] Care Team Providers Care Ingredient Handler Name Role Phone Shanda Kim Primary Care Physicia n TRICIA MARTINEZ Attending Clinician Tricia Swann CNM Attending Clinician [phone] Doctor Unassigned, Adona Attending Clinician U SHANDA Kumar Attending Clinician Unavail Elijah John MD Attending Clinician [phone] ELIJAH BATEMAN Attending Clinician Unavailabl e DESHAUN BARBOSA Attending Clinician Shanda Valenzuela Attending Clinician + Lab, Adc Fam Pob I Attending Clinician CALEB Corona Attending Clinician Unavailable TRICIA MARTINEZ Admitting Clinician ELIJAH Walters Admitting Clinician Sahil davis Payers Payer Name Policy Type Policy Number Effective Date Expirati on Date Source [facility] [id number] 2017 00:00:00 [facility] [id number] 2022 00:00:00 [place] [id number] 2020 00:00:00 Problems Condition Name Condition Details Condition Category Status Onset Date Resolution Date Last Treatment Date Treating Clinician Comments Source Thyroid disorder Thyroid disorder Disease Active 01-09 00:00: 00 [facility] Fibroid Fibroid Disease Active 01-09 00:00: 00 [facility] Venereal disease contact Venereal disease contact Disease Active 02-19 00:00: 00 [facility] Heavy menses Heavy menses Disease Active 02-19 00:00: 00 [facility] Well woman exam Well woman exam Disease Active 2015-09 00:00: 00 [facility] Obesity (BMI 30-39.9) Obesity (BMI 30-39.9) Disease Active 2015-09 00:00: 00 [facility] Stress incontinen ce Stress incontinen ce Disease Active 2015-09 00:00: 00 [facility] History of tubal ligation History of tubal ligation Disease Active 01-29 00:00: 00 [facility] Contracept jessie management Contracept jessie management Disease Active 01-29 00:00: 00 [facility] Allergies, Adverse Reactions, Alerts Allergy Name Allergy Type Status Severity Reaction(s) Onset Date Inactive Date Treating Clinician Comments Source NO KNOWN ALLERGIE S Drug Class Active [facility] Social History Social Habit Start Date Stop Date Quantity Comments Source [facility] function 2023-01-08 00:00:00 2023-01-08 00:00:00 [facility] Exposure to SARS-CoV-2 (event) 2022-12-28 00:00:00 2023-01-07 06:57:00 Not sure [facility] Alcohol intake 2017-11-25 00:00:00 2017-11-25 00:00:00 0 /d [facility] Sex Ass[birth year] At 1985 00:00:00 1985 00:00:00 [facility] Smoking Status Start Date Stop Date Source Never smoked tobacco [facility] Medications Ordered Medication Name Filled Medication Name Start Date Stop Date Current Medication? Ordering Clinician Indication Dosage Frequency Signature (SIG) Comments Components Source CITALOPRAM HYDROBROMID E (CELEXA ORAL) 5-05 11:03: 26 01-08 00:00 :00 No Take by mouth. [facility] PAYABLE REPRESENTATIVE THYROID 30 mg tablet -16 00:00: 00 Yes 30mg Take 1 tablet by mouth in the morning. [facility] progesteron e 200 mg capsule 330 00:00: 00 Yes 200mg Take 1 capsule by mouth in the morning. [facility] acetaminoph en (TYLENOL) tablet 650 mg 10-19 21:45: 00 10-19 21:38 :00 No 650mg 650 mg, Oral, ONCE, 1 dose, On Wed10/19/22 at 1545, JANES [facility] ondansetron 4 mg tablet 10-19 00:00: 00 01-08 00:00 :00 No [id number] 1-2 tablets every 8 hours as needed for nausea [facility] amoxicillin -clavulanat e 875-125 mg per tablet 10-19 00:00: 00 10-27 05:59 :00 No [id number] 1{tbl} Take 1 tablet by mouth every 12 (twelve) hours for 7 days. [facility] CITALOPRAM HYDROBROMID E (CELEXA ORAL) 2016-0915 09:05: 48 Yes Take by mouth. [facility] norgestimat e-ethinyl estradiol (ORTHO TRI-CYCLEN, 28,) 0.18/0.215/ 0.25 mg-35 mcg (28) tablet 16 00:00: 00 01-08 00:00 :00 No [id number] 1{tbl} Take 1 tablet by mouth daily. [facility] Immunizations Ordered Immunization Name Filled Immunization Name Date Status Comments Source SARS-COV-2 COVID-19 PFIZER VACCINE 2021-09-04 00:00:00 Completed [facility] SARS-COV-2 COVID-19 PFIZER VACCINE 2021-09-04 00:00:00 Completed [facility] SARS-COV-2 COVID-19 PFIZER VACCINE 2021-07-24 00:00:00 Completed [facility] SARS-COV-2 COVID-19 PFIZER VACCINE 2021-07-24 00:00:00 Completed [facility] TD, NOS 2005-09-10 00:00:00 Completed [facility] TD, NOS 2005-09-10 00:00:00 Completed [facility] TD, NOS 2005-09-10 00:00:00 Completed [facility] TD, NOS 2005-09-10 00:00:00 Completed [facility] TD, NOS Unknown Completed [facility] SARS-COV-2 COVID-19 PFIZER VACCINE Unknown Completed [facility] TD, NOS Unknown Completed [facility] SARS-COV-2 COVID-19 PFIZER VACCINE Unknown Completed [facility] Vital Signs Vital Name Observation Time Observation Value Comments S ource Body temperature 2023-01-08 15:39:00 36.67 Ana [facility] Respiratory rate 2023-01-08 15:39:00 18 /min [facility] Body height 2023-01-08 15:39:00 154.9 cm [facility] Body weight 2023-01-08 15:39:00 74.571 kg [facility] BMI 2023-01-08 15:39:00 31.06 kg/m2 [facility] Systolic blood pressure 2023-01-08 15:39:00 117 mm[Hg] [facility] Diastolic blood pressure 2023-01-08 15:39:00 73 mm[Hg] [facility] Heart rate 2023-01-08 15:39:00 65 /min [facility] Systolic blood pressure 2022-10-19 22:30:00 109 mm[Hg] [facility] Diastolic blood pressure 2022-10-19 22:30:00 85 mm[Hg] [facility] Heart rate 2022-10-19 22:30:00 68 /min [facility] Respiratory rate 2022-10-19 22:30:00 15 /min [facility] Oxygen saturation in Arterial blood by Pulse oximetry 2022-10-19 22:30:00 97 /min [facility] Body temperature 2022-10-19 19:48:00 36.5 Ana [facility] Body height 2022-10-19 19:48:00 157.5 cm [facility] Body weight 2022-10-19 19:48:00 74.844 kg [facility] BMI 2022-10-19 19:48:00 30.18 kg/m2 [facility] Procedures Procedure Date / Time Performed Performing Clinician Source US PELVIS COMPLETE WITH TRANSVAGINAL 2023-01-15 22:33:30 Tricia Martinez [facility] CBC WITH DIFF 2023-01-08 16:47:00 Tricia Martinez [facility] HCV ANTIBODY 2023-01-08 16:47:00 [facility] HIV 1/2 AG-AB WITH REFLEX 2023-01-08 16:47:00 Tricia Martinez [facility] PAP SMEAR-LIQUID BASED-CP 2023-01-08 16:47:00 Tricia Martinez [facility] SYPHILIS IGG/IGM 2023-01-08 16:47:00 Tricia Martinez [facility] ASSIGNMENT OF BENEFITS 2023-01-08 14:48:07 Docto r Unassigned, Adona [facility] EKG-12 LEAD 2022-10-19 22:30:08 Elijah Bateman [facility] TEST, SERUM 2022-10-19 21:11:00 Akil Bateman [facility] TROPONIN I 2022-10-19 21:11:00 Elijah Bateman [facility] THYROID STIMULATING HORMONE 2022-10-19 21:11:00 Elijah Bateman [facility] COMP. METABOLIC PANEL ([id number]) 2022-10-19 21:11:00 Elijah Bateman [facility] CBC WITH DIFF 2022-10-19 21:11:00 [facility] COVID-19 (ID NOW RAPID TESTING) 2022-10-19 21:11:00 Elijah Bateman [facility] CONSENT/REFUSAL FOR DIAGNOSIS AND TREATMENT 2022-10-19 19:40:49 Doctor Unassigned, Adona [facility] Encounters Start Date/Time End Date/Time Encounter Type Admission Type Attending [facility] Facility Care Department Encounter ID Source 2023-01-15 16:41:09 2023-01-15 23:59:00 Outpatient R TRICIA MARTINEZ [facility] [id number] [facility] 2023-01-15 16:41:09 2023-01-15 23:59:00 Hospital Encounter Tricia Martinez [facility] 1..114 350.1.13.10 4.2.7.2.686 [id number] [facility] 2023-01-12 00:00:00 2023-01-12 00:00:00 Patient Secure Msg Tricia Martinez [facility] CRM BUSINESS ANALYST [facility] MATERNAL & CHILD [facility] 1.0.114 350.1.13.10 4.2.7.2.686 [id number] [facility] 2023-01-08 10:15:00 2023-01-08 11:48:55 Outpatient R TRICIA MARTINEZ [facility] [id number] [facility] 2023-01-08 10:15:00 2023-01-08 11:48:55 Office Visit Tricia Martinez [facility] CRM BUSINESS ANALYST [facility] MATERNAL & CHILD [facility] 1.0.114 350.1.13.10 4.2.7.2.686 [id number] [facility] 2023-01-08 00:00:00 2023-01-08 00:00:00 Orders Only Doctor Unassigned, Adona [facility] 1.840.114 350.1.13.10 4.2.7.2.686 [id number] [facility] 2022-10-19 13:49:00 2022-10-19 16:43:00 Emergency Elijah Bateman [facility] 1..840.114 350.1.13.10 4.2.7.2.686 [id number] [facility] 2022-10-19 13:49:00 2022-10-19 16:43:00 Emergency X ELIJAH BATEMAN [facility] ERT [id number] [facility] 2021-09-29 10:30:00 2021-09-29 10:30:00 Outpatient R DESHAUN BARBOSA [facility] [id number] [facility] 2021-09-29 10:30:00 2021-09-29 10:30:00 Outpatient R BARBOSAMIGUELANGELSCTrae [facility] [id number] [facility] 2021-09-10 00:00:00 2021-09-10 00:00:00 Patient Secure Msg Shanda Curiel [facility] CRM BUSINESS ANALYST [facility] MATERNAL & CHILD [facility] 1..840.114 350.1.13.10 4.2.7.2.686 [id number] [facility] 2020-09-30 17:31:57 2020-09-30 17:51:57 Laboratory Only Lab, Adc Fam Pob I [facility] Professio nal Office [facility] ..840.114 350.1.13.10 4.2.7.2.686 [id number] 2020-09-30 17:40:00 2020-09-30 17:40:00 Outpatient R [facility] [id number] [facility] 2020-09-30 17:40:00 2020-09-30 17:40:00 Outpatient R CALEB BLACK [facility] [id number] [facility] 2020-09-13 13:15:00 2020-09-13 13:15:00 Outpatient R SHANDA CURIEL [facility] [id number] [facility] Results Test Description Test Time Test Comments Results Result Co mments Source [facility] - SYPHILIS [id number] 15:20:40* Test Item Value Reference Range Interpretation Comme nts Syphilis IgG/IgM (test code = 99318-8) Non-reactive Non-reactive WATSON (test code = WATSON) Non-reactive - No serologic evidence of T. pallidum infection. Cannot exclude incubating or early syphilis. Submit a second specimen in 2-4 weeks if syphilis is clinically suspected. Equivocal - Further testing to follow. Reactive - Further testing to follow. Lab Interpretation (test code = 77989-9) Normal [facility] [id number] 10:45:29* Test Item Value Reference Range Interpretation Comme [facility] HCV Ab (test code = 67370-2) Negative HCV Semi-Quantitative (test code = 41010-2) 0.03 [facility] [id number] 10:45:29* Test Item Value Reference Range Interpretation Comme nts HCV Ab (test code = 84104-3) Negative HCV Semi-Quantitative (test code = 25957-8) 0.03 [facility] AG-AB WITH [id number] 06:45:50* Test Item Value Reference Range Interpretation Comme nts HIV Semi-quantitative (test code = 53742-8) 0.07 Negative WATSON (test code = WATSON) Non-reactive for HIV-1 antigen and HIV-1/HIV-2 antibodies. ?No laboratory evidence of HIV infection. ?Repeat in 2-4 weeks if acute HIV infection is suspected. [facility] AG-AB WITH [id number] 06:45:50* Test Item Value Reference Range Interpretation Comme nts HIV Semi-quantitative (test code = 09955-8) 0.07 Negative WATSON (test code = WATSON) Non-reactive for HIV-1 antigen and HIV-1/HIV-2 antibodies. ?No laboratory evidence of HIV infection. ?Repeat in 2-4 weeks if acute HIV infection is suspected. [facility] WITH [id number] 04:29:01* Test Item Value Reference Range Interpretation Comme nts WBC (test code = 6690-2) 6.41 See_Comment [Automated [employer]] The system which generated this result transmitted reference range: 4.30 - 11.10 10*3/?L. The reference range was not used to interpret this result as normal/abnormal. RBC (test code = 789-8) 4.08 See_Comment [Automated [employer]] The system which generated this result [...] 33.7 g/dL 31.6-35.1 RDW-SD (test code = 75744-7) 44.2 fL 39.0-49.9 RDW-CV (test code = 788-0) 12.6 % 12.0-15.5 PLT (test code = 777-3) 254 See_Comment [Automated [employer]] The system which generated this result transmitted reference range: 166 - 358 10*3/?L. The reference range was not used to interpret this result as normal/abnormal. MPV (test code = 44347-3) 11.3 fL 9.5-12.9 NRBC/100 WBC (test code = 8044348483) 0.0 See_Comment [Automated me ssage] The system which generated this result transmitted reference range: 0.0 - 10.0 /100 WBCs. The reference range was not used to interpret this result as normal/abnormal. NRBC x10^3 (test code = 4491344572) See_Comment [Automated me ssage] The system which generated this result transmitted reference range: 10*3/?L. The reference range was not used to interpret this result as normal/abnormal. GRAN MAT (NEUT) % (test code = 770-8) 55.6 % IMM GRAN % (test code = 8827899969) 0.20 % LYMPH % (test code = 736-9) 36.2 % MONO % (test code = 5905-5) 5.5 % EOS % (test code = 713-8) 1.7 % BASO % (test code = 706-2) 0.8 % GRAN MAT x10^3(ANC) (test code = 2996827591) 3.57 10*3/uL 1.88-7.09 IMM GRAN x10^3 (test code = 8139048476) 0.00-0.06 LYMPH x10^3 (test code = 731-0) 2.32 10*3/uL 1.32-3.29 MONO x10^3 (test code = 742-7) 0.35 10*3/uL 0.33-0.92 EOS x10^3 (test code = 711-2) 0.11 10*3/uL 0.03-0.39 BASO x10^3 (test code = 704-7) 0.05 10*3/uL 0.01-0.07 [facility] WITH [id number] 04:29:01* Test Item Value Reference Range Interpretation Comme nts WBC (test code = 6690-2) 6.41 See_Comment [Automated messa ge] The system which generated this result transmitted reference range: 4.30 - 11.10 10*3/?L. The reference range was not used to interpret this result as normal/abnormal. RBC (test code = 789-8) 4.08 See_Comment [Automated [employer]] The system which generated this result [...] 33.7 g/dL 31.6-35.1 RDW-SD (test code = 88366-2) 44.2 fL 39.0-49.9 RDW-CV (test code = 788-0) 12.6 % 12.0-15.5 PLT (test code = 777-3) 254 See_Comment [Automated messa ge] The system which generated this result transmitted reference range: 166 - 358 10*3/?L. The reference range was not used to interpret this result as normal/abnormal. MPV (test code = 90882-9) 11.3 fL 9.5-12.9 NRBC/100 WBC (test code = 4359782546) 0.0 See_Comment [Automated me ssage] The system which generated this result transmitted reference range: 0.0 - 10.0 /100 WBCs. The reference range was not used to interpret this result as normal/abnormal. NRBC x10^3 (test code = 4241312130) See_Comment [Automated me ssage] The system which generated this result transmitted reference range: 10*3/?L. The reference range was not used to interpret this result as normal/abnormal. GRAN MAT (NEUT) % (test code = 770-8) 55.6 % IMM GRAN % (test code = 1047442387) 0.20 % LYMPH % (test code = 736-9) 36.2 % MONO % (test code = 5905-5) 5.5 % EOS % (test code = 713-8) 1.7 % BASO % (test code = 706-2) 0.8 % GRAN MAT x10^3(ANC) (test code = 7367055073) 3.57 10*3/uL 1.88-7.09 IMM GRAN x10^3 (test code = 7145522650) 0.00-0.06 LYMPH x10^3 (test code = 731-0) 2.32 10*3/uL 1.32-3.29 MONO x10^3 (test code = 742-7) 0.35 10*3/uL 0.33-0.92 EOS x10^3 (test code = 711-2) 0.11 10*3/uL 0.03-0.39 BASO x10^3 (test code = 704-7) 0.05 10*3/uL 0.01-0.07 [facility] [id number] 22:15:29 * Test Item Value Reference Range Interpretation Comme nts TSH (test code = 6691247871) 1.65 See_Comment [Automated messa ge] The system which generated this result transmitted reference range: 0.45 - 4.70 mIU/L. The reference range was not used to interpret this result as normal/abnormal. Lab Interpretation (test code = 42156-5) Normal [facility] HospitalTROP[facility] [id number] 21:56:45* Test Item Value Reference Range Interpretation Comme nts TROPONIN I (test code = 9377687032) 0.008 ng/mL <=0.034 WATSON (test code = [...] of biotin. Lab Interpretation (test code = 15468-8) Normal [facility] METABOLIC PANEL (89332)2022-10-19 21:46:40* Test Item Value Reference Range Interpretation Comme nts NA (test code = 6589119220) 137 mmol/L 135-145 K (test code = 2028150666) 3.8 mmol/L 3.5-5.0 CL (test code = 5727673543) 104 mmol/L 98-108 CO2 TOTAL (test code = 2932339955) 25 mmol/L 23-31 AGAP (test code = 7196708812) 8 2-16 BUN (test code = 9330854667) 10 mg/dL 7-23 GLUCOSE (test code = 9334823261) 98 mg/dL 70-110 CREATININE (test code = 2442099908) 0.64 mg/dL 0.50-1.04 TOTAL BILI (test code = 2954432538) 0.5 mg/dL 0.1-1.1 CALCIUM (test code = 3846861061) 8.6 mg/dL 8.6-10.6 T PROTEIN (test code = 4024506244) 7.0 g/dL 6.3-8.2 ALBUMIN (test code = 1512872152) 4.0 g/dL 3.5-5.0 ALK PHOS (test code = 6340523496) 70 U/L 34-122 ALTv (test code = 1742-6) 21 U/L 5-35 AST(SGOT) (test code = 0962126952) 23 U/L 13-40 eGFR (test code = 1032664285) 103.3 mL/min/1.73m2 WATSON (test code = WATSON) [...] or urine or abnormalities in imaging tests). [facility], [id number] 21:43:16* Test Item Value Reference Range Interpretation Comme nts PREG SERUM (test code = 9923374935) Negative WATSON (test code = WATSON) Less than 10 IU/L. ?If low titer or ectopic is suspected, resubmit specimen in 48-72 hours. [facility] WITH [id number] 21:31:17* Test Item Value Reference Range Interpretation Comme nts WBC (test code = 6690-2) 7.27 See_Comment [Automated [employer]] The system which generated this result transmitted reference range: 4.30 - 11.10 10*3/?L. The reference range was not used to interpret this result as normal/abnormal. RBC (test code = 789-8) 4.02 See_Comment [Automated [employer]] The system which generated this result [...] 34.5 g/dL 31.6-35.1 RDW-SD (test code = 22210-3) 42.4 fL 39.0-49.9 RDW-CV (test code = 788-0) 12.3 % 12.0-15.5 PLT (test code = 777-3) 248 See_Comment [Automated messa ge] The system which generated this result transmitted reference range: 166 - 358 10*3/?L. The reference range was not used to interpret this result as normal/abnormal. MPV (test code = 75876-0) 10.7 fL 9.5-12.9 NRBC/100 WBC (test code = 3917844819) 0.0 See_Comment [Automated [employer] ssage] The system which generated this result transmitted reference range: 0.0 - 10.0 /100 WBCs. The reference range was not used to interpret this result as normal/abnormal. NRBC x10^3 (test code = 0443838511) See_Comment [Automated me ssage] The system which generated this result transmitted reference range: 10*3/?L. The reference range was not used to interpret this result as normal/abnormal. GRAN MAT (NEUT) % (test code = 770-8) 62.1 % IMM GRAN % (test code = 9331290110) 0.40 % LYMPH % (test code = 736-9) 31.1 % MONO % (test code = 5905-5) 5.0 % EOS % (test code = 713-8) 0.8 % BASO % (test code = 706-2) 0.6 % GRAN MAT x10^3(ANC) (test code = 6495972224) 4.52 10*3/uL 1.88-7.09 IMM GRAN x10^3 (test code = 4659630702) 0.03 10*3/uL 0.00-0.06 LYMPH x10^3 (test code = 731-0) 2.26 10*3/uL 1.32-3.29 MONO x10^3 (test code = 742-7) 0.36 10*3/uL 0.33-0.92 EOS x10^3 (test code = 711-2) 0.06 10*3/uL 0.03-0.39 BASO x10^3 (test code = 704-7) 0.04 10*3/uL 0.01-0.07 [facility]"
--- NOTE | 2024-12-30 14:31 | ER ---
Nurse's Notes [facility] Name: Nora Dsouza Age: 39 yrs Sex: Female : 1985 Arrival Date: 12/30/2024 Time: 14:11 Bed 10 Private MD: Diagnosis: Other otitis externa, right ear Presentation: 12/30 14:18 Chief complaint: Patient states: janell ear pain and drainage x 3 days ago, pt also aa5 reports sinus congestion. Coronavirus screen: At this time, the client does not indicate any symptoms associated with coronavirus-19. Ebola Screen: Patient denies travel to an Ebola-affected area in the 21 days before illness onset. Initial Sepsis Screen: Does the patient meet any 2 criteria? No. Patient's initial sepsis screen is negative. Does the patient have a suspected source of infection? No. Patient's initial sepsis screen is negative. Risk Assessment: Do you want to hurt yourself or someone else? Patient reports no desire to harm self or others. Onset of symptoms was December 2024. 14:18 Method Of Arrival: Ambulatory aa5 14:18 Acuity: EDMUND 5 aa5 Historical: - Allergies: 14:19 Iodine; aa5 - PMHx: 14:19 Migraines; aa5 - PSHx: 14:19 section; tubal ligation; Tummy tuck; aa5 - Immunization history:: Adult Immunizations unknown. - Infectious Disease History:: Denies. - Social history:: Smoking status: Patient denies any tobacco usage or history of. - Family history:: not pertinent. - Hospitalizations: : No recent hospitalization is reported. Screenin:46 Abuse screen: Denies threats or abuse. Denies injuries from another. Nutritional ss screening: No deficits noted. Tuberculosis screening: Never had TB. Assessment: 14:46 General: Appears in no apparent distress. comfortable. Pain: Complains of pain in right ss ear and left ear Quality of pain is described as aching, Is continuous. Neuro: Level of Consciousness is awake, alert, obeys commands, Oriented to person, place, time, situation. Respiratory: Airway is patent Respiratory effort is even, unlabored, Respiratory pattern is regular, symmetrical. Vital Signs: 14:18 BP 116 / 82; Pulse 83; Resp 20 S; Temp 98(O); Pulse Ox 98% on R/A; Weight 83.91 kg (R); aa5 Height 5 ft. 2 in. (R); 14:18 Body Mass Index 33.84 (83.91 kg, 157.48 cm) aa5 ED Course: 14:14 Patient arrived in ED. im 14:14 Houston Mcdermott MD is Attending Physician. rn 14:18 Arm band placed on. aa5 14:19 Triage completed. aa5 14:21 Mariangel Timmons RN is Primary Nurse. iw 14:29 Kayla Jaime MD is Referral Physician. rn 14:46 Patient has correct armband on for positive identification. ss 14:46 No provider procedures requiring assistance completed. Patient did not have IV access ss during this emergency room visit. Administered Medications: No medications were administered Medication: 14:46 VIS not applicable for this client. ss Outcome: 14:30 Discharge ordered by MD. rn 14:46 Discharged to home ambulatory, ss 14:46 Condition: good 14:46 Discharge instructions given to patient, Instructed on discharge instructions, follow up and referral plans. medication usage, Demonstrated understanding of instructions, follow-up care, medications, Prescriptions given X 2, 14:47 Patient left the ED. ss Signatures: Mariangel Timmons, RN RN Houston cMdermott MD MD rn Calderon, Audri, RN RN [place] [facility] Lupe Trejo RN RN Armida Sibley
--- NOTE | 2024-12-30 14:31 | EDPHYS ---
Physician Documentation [facility] Name: Nora Dsouza Age: 39 yrs Sex: Female : 1985 Arrival Date: 12/30/2024 Time: 14:11 Bed 10 Private MD: ED Physician Houston Mcdermott HPI: 12/30 14:25 This 39 yrs old Female presents to ER via Ambulatory with complaints of Ear Pain, rn Drainage From Ear. 14:25 The patient presents with drainage, pain. The complaints affect the right ear and left rn ear. 14:25 Onset: The symptoms/episode began/occurred 3 day(s) ago. Modifying factors: The rn symptoms are alleviated by nothing, the symptoms are aggravated by nothing. Associated signs and symptoms: Pertinent negatives: fever. Severity of symptoms: At their worst the symptoms were mild in the emergency department the symptoms are unchanged. The patient has experienced similar episodes in the past. Patient reports chronic ear problems. Has noticed some sinus drainage as well as bilateral ear itching and drainage. Right ear hurts. Slightly muffled hearing. Historical: - Allergies: 14:19 Iodine; aa5 - PMHx: 14:19 Migraines; aa5 - PSHx: 14:19 section; tubal ligation; Tummy tuck; aa5 - Immunization history:: Adult Immunizations unknown. - Infectious Disease History:: Denies. - Social history:: Smoking status: Patient denies any tobacco usage or history of. - Family history:: not pertinent. - Hospitalizations: : No recent hospitalization is reported. ROS: 14:25 Constitutional: Negative for fever, chills, and weight loss, ENT: Positive for rn bilateral ear itching and drainage. Respiratory: Negative for shortness of breath, cough, wheezing, and pleuritic chest pain, Neuro: Negative for headache, weakness, numbness, tingling, and seizure, Exam: 14:25 Constitutional: This is a well developed, well nourished patient who is awake, alert, rn and in no acute distress. ENT: No evidence of TM rupture or perforation. Bilateral external canal erythema, right worse than left with clear drainage and cerumen. No foreign body Vital Signs: 14:18 BP 116 / 82; Pulse 83; Resp 20 S; Temp 98(O); Pulse Ox 98% on R/A; Weight 83.91 kg (R); aa5 Height 5 ft. 2 in. (R); 14:18 Body Mass Index 33.84 (83.91 kg, 157.48 cm) aa5 MDM: 14:14 Medical Screening Exam initiated rn 14:25 Differential diagnosis: otitis externa, acute otalgia, serotympanum. Data reviewed: rn vital signs, nurses notes, and as a result, I will discharge patient. Counseling: I had a detailed discussion with the patient and/or guardian regarding the historical points, exam findings, and any diagnostic results supporting the discharge/admit diagnosis, the need for outpatient follow up, to return to the emergency department if symptoms worsen or persist or if there are any questions or concerns that arise at home. Special discussion: I discussed with the patient/guardian in detail that at this point there is no indication for admission to the hospital. It is understood, however, that if the symptoms persist or worsen the patient needs to return immediately for re-evaluation. Based on the history and exam findings, there is no indication for further emergent testing or inpatient evaluation. I discussed with the patient/guardian the need to see the ENT specialist for further evaluation of the symptoms. Administered Medications: No medications were administered Disposition Summary: 12/30/24 14:30 Discharge Ordered Notes: Location: Home rn Problem: new rn Symptoms: are unchanged rn Condition: Stable rn Diagnosis - Other otitis externa, right ear rn Followup: rn - With: Kayla Jaime MD - When: As needed - Reason: Recheck today's complaints, Re-evaluation by your physician Discharge Instructions: - Discharge Summary Sheet rn - Ear Drops, Adult rn - Otitis Externa rn Forms: - Medication Reconciliation Form rn - Antibiotic rn imaging - Prescription Opioid Use rn - Patient Portal Instructions rn - Leadership Thank You Letter rn Prescriptions: - Cortisporin-TC 3.3-3-10-0.5 mg/mL Otic drops, suspension - instill 4 drops OTIC route every 6 hours As needed; 1 unit; Refills: 0, Product rn Selection Permitted - Zithromax Z-Diomedes 250 mg Oral Tablet - take 1 tablet ORAL route as directed for 5 days Day 1 - take two (2) tablets rn one time. Day 2, 3, 4 , 5 take one (1) tablet once daily.; 6 tablet; Refills: 0, Product Selection Permitted Signatures: Houston Mcdermott MD MD rn Ghazala Norton, RN RN aa5
[2025-01-01 18:47] VITALS: BP 116/82; TEMP 98; O2SAT 98
== END 2024-12-30 14:47 | disposition home or self-care (01) ==
LOC: ER 14:11
DX: H60.8X1 Other otitis externa, right ear (principal)
CPT/HCPCS: 99283